=== PATIENT | female | born 1975 | race African-American/Black ===

== ENCOUNTER 2017-10-29 16:14 | Outpatient (CLI) | payer OTHER | END 2017-10-29 16:15 | disposition home or self-care (01) | LOC: CTENTCT 16:14 | PROVIDERS: ATTEND Specialist | DX: J32.9 Chronic sinusitis, unspecified (principal) | CPT/HCPCS: 70486 ==

== ENCOUNTER 2018-02-15 18:46 | Inpatient (IN) | payer OTHER ==
[~2018-02-15 18:46] MED LIST: ISOVUE-370 76%-LOCM 1 ML ONE
[2018-02-15 19:48] LABS: #Basophils 0.1 thou/uL (0.0-0.2); #Eosinphils 0.1 thou/uL (0.0-0.7); #Lymphocytes 3.2 thou/uL (1.20-3.40); #Monocytes 0.5 thou/uL (0.11-0.59); #Neutrophils 4.4 thou/uL (1.40-6.50); %Basophils 0.7 % (0.0-1.0); %Eosinophils 1.2 % (0.0-10.0); %Lymphocytes 39.3 % (21.0-51.0); %Monocytes 5.8 % (0.0-10.0); %Neutrophils 53.1 % (42.0-75.0); Hemoglobin 14.8 g/dL (12.0-16.0); Mean Corpuscular HGB CONC 32.4 g/dL (32.0-36.0); Mean Corpuscular Hemoglobin 28.5 pg (27.0-31.0); Mean Corpuscular Volume 88.1 fl (81.0-99.0); Mean Platelet Volume 8.9 fL (7.4-10.4); Platelet Count 248 thou/uL (130-400); RBC Distribution Width 12.5 % (11.5-14.5); Red Blood Cell (RBC) Count 5.18 mill/uL (4.20-5.40); White Blood Cell (WBC) Count 8.2 thou/uL (4.8-10.8)
--- NOTE | 2018-02-15 20:06 | CT ---
CT HEAD NONCONTRAST: Indication: Altered mental status. FINDINGS: There is no evidence of intracranial hemorrhage, mass effect, midline shift or ventriculomegaly. Para nasal sinuses are clear, where visualized. IMPRESSION: No acute intracranial abnormality. POS: [facility]
[2018-02-15 20:11] LABS: ALT (SGPT) 18 U/L (8-55); AST (SGOT) 19 U/L (5-34); Alkaline Phosphatase 63 U/L (40-150); Anion Gap 14 mmol/L (10-20); BUN (Urea Nitrogen) 13 mg/dL (7.0-18.7); Bilirubin, Total 0.4 mg/dL (0.2-1.2); Calc. Creatinine Clearance 0 mL/min (70-130); Calcium 9.1 mg/dL (7.8-10.44); Carbon Dioxide 24 mmol/L (22-29); Chloride 107 mmol/L (98-107); Estimated GFR-MDRD 82; Globulin 3.2 g/dL (2.4-3.5); Glucose 156 mg/dL (70-105); Potassium 3.7 mmol/L (3.5-5.1); Protein, Total 7.2 g/dL (6.0-8.3); Sodium 141 mmol/L (136-145)
[2018-02-15 20:15] LABS: CKMB 1.4 ng/mL (0-6.6); Troponin I Less than 0.010 ng/mL (< 0.028)
[2018-02-15] MEDS ORDERED: Ondansetron ODT 4 MG TAB ONE (20:30)
--- NOTE | 2018-02-15 20:32 | RAD ---
FRONTAL VIEW CHEST: Comparison: 11-22-11 Clinical history: Emergency exam. Difficulty breathing, chest pain. FINDINGS: There is enlarged of the cardiac silhouette. There are patchy bilateral alveolar opacities. No obviou s effusion or discrete pneumothorax within limitation of semi upright technique. Vascular prominence is seen at each hilar region. IMPRESSION: Findings which indicate fluid overload. Recommend continued imaging follow up. POS: [facility]
[2018-02-15 21:00] LABS: Bilirubin Negative (Negative); Blood, Urine Negative (Negative); Clarity CLEAR (Clear); Glucose, Urine (Dipstick) >=1000 mg/dL (Negative); Leukocyte Negative (Negative); Nitrite Negative (Negative); Protein, Urine (Dipstick) Negative (Neg-Trace); Specific Gravity, Urine 1.029 (1.002-1.036); Urobilinogen 0.2 mg/dL (0.2-1.0)
--- NOTE | 2018-02-15 22:33 | CT ---
CTA CHEST WITH 3D VOLUME RENDERING: Clinical history: Shortness of breath. Syncope. FINDINGS: There is no large central filling defect of the pulmonary arteries. The thoracic aorta is non-aneurys mal. There is diffuse alveolar consolidation throughout each lung. No pneumothorax or obvious effusio n. There are scattered borderline sized thoracic lymph nodes, nonspecific. No acute process of the im aged upper abdomen evident. Osseous structures are intact. IMPRESSION: 1. No large, central filling defects. 2. Diffuse alveolar consolidation bilaterally, favoring edema. The possibility of diffuse bilateral a typical pneumonia or other inflammatory process is not excluded and should be correlated with clinica l assessment. Recommend radiographic follow up to confirm resolution. POS: [facility]
[2018-02-15] MEDS ORDERED: cefTRIAXone\\ROCEPHIN 2 GM VIAL ONE (23:08)
[2018-02-15] MEDS ORDERED: Azithromycin 500 MG VIAL ONE (23:08)
[2018-02-15 23:20] LABS: Lactic Acid 2.3 mmol/L (0.5-2.2)
[2018-02-15 23:31] LABS: Troponin I Less than 0.010 ng/mL (< 0.028)
[2018-02-16] MEDS ORDERED: Acetaminophen 325 MG TAB PO PRN ×2 (00:09→02:09)
[2018-02-16] MEDS ORDERED: Ondansetron ODT 4 MG TAB SL PRN (00:09)
[2018-02-16] MEDS ORDERED: Ondansetron HCl/PF 4 MG/2 ML Vial IVP PRN ×2 (00:09→02:09)
[2018-02-16] MEDS ORDERED: cefTRIAXone\\ROCEPHIN 2 GM in Sodium Chloride 0.9% 100 ML IVPB SCH (00:15)
[2018-02-16 00:59] VITALS: BMI 47.2
[2018-02-16] MEDS ORDERED: Guaifenesin DM 100-10/5 ML UDCUP PO PRN (02:09)
[2018-02-16] MEDS ORDERED: Dextrose 50% Abboject 50 ML SYRINGE SLOW IVP PRN (02:09)
[2018-02-16] MEDS ORDERED: HYDROcodone/Acetaminophen 5/325 mg Tablet PO PRN (02:09)
[2018-02-16] MEDS ORDERED: Ondansetron ODT 4 MG TAB PO PRN ×2 (02:09)
[2018-02-16] MEDS ORDERED: Mag-Al 1200 mg/1200 mg/30 ML UDCUP PO PRN (02:09)
[2018-02-16] MEDS ORDERED: Milk Of Magnesia 30 ML UDCUP PO PRN (02:09)
[2018-02-16] MEDS ORDERED: Dextrose 5% in Water 1,000 ML IV PRN (02:09)
[2018-02-16 02:22] LABS: Troponin I Less than 0.010 ng/mL (< 0.028)
[2018-02-16] MEDS ORDERED: Furosemide 40 MG/4 ML VIAL SLOW IVP SCH (02:30)
--- NOTE | 2018-02-16 02:54 | HP ---
PRIMARY CARE PHYSICIAN: Dr. Karis Garcia. CHIEF COMPLAINT: "I have passed out." HISTORY OF PRESENT ILLNESS: Ms. Coelho is a pleasant 42-year-old female who has a history of diabet es mellitus type 2. She says that she was feeling fine all day. She had just gotten home from going out and had sat down on the couch when she says that her vision got blurry and the room started to s pin. She says that she was trying to get up and then she felt like she was going to throw up. When she attempted to stand up and then says she passed out. She says the next thing she knew she was in the emergency room. She says prior to that she did not have any problems and she states this on lorenzo ral occasions. She did say that she has noticed some pain on the right side of her face and behind h er eye. She did admit to having some shortness of breath at night in the last week or so and having to sleep on 2 pillows at night. Otherwise, no other complaints. She is coughing when I see her in t he room, but she says this just started since she has been in the hospital and the cough is nonproduc tive. She denies any fevers or chills and no other problems other than she continues to have some he adache and dizziness. REVIEW OF SYSTEMS: Constitutional: No fevers, chills, no night sweats, no weight loss. HEENT: She does admit to some headache primarily on the right side of her face behind her right eye as well as feeling dizzy and lightheaded. No sore throat, no rhinorrhea, no neck pain, no adenopathy. Pulmonar y: She has had some cough just a day. It is nonproductive. No hemoptysis. Cardiovascular: She de nies chest pain. She does admit to 2-pillow orthopnea as well as occasionally waking up through the night short-winded. No lower extremity edema and no palpitations. Gastrointestinal: She denies any abdominal pain, no nausea, no vomiting, no change in bowels. Genitourinary: No urinary frequency, hematuria, no hesitancy. Musculoskeletal: No muscle pains, weakness, or joint pains. Neurologic: No focal weakness, numbness, no seizures. Psychiatric: No symptoms of anxiety or depression. Skin and Integument: No skin changes. No rash. PAST MEDICAL HISTORY: Significant for diabetes mellitus. PAST SURGICAL HISTORY: She has had a hysterectomy. ALLERGIES: AMOXICILLIN. SOCIAL HISTORY: She is single, has one child. She is a nonsmoker, nondrinker. FAMILY HISTORY: Her mother has lupus as well as congestive heart failure. MEDICATIONS: Include metformin 2000 mg at bedtime, Lipitor 20 mg at bedtime, biotin 5000 units daily . PHYSICAL EXAMINATION: GENERAL: She is alert and oriented. She appears to be in no acute distress. VITAL SIGNS: Blood pressure was 110/58, heart rate 97, respiratory rate of 20, O2 saturation was 93% on 4 liters, temperature was 97.1. HEENT: Pupils are equal, round, and reactive. Extraocular muscles are intact. Her sclerae are anic teric. Throat: No erythema, no exudates. NECK: No adenopathy, no bruits. LUNGS: She has wheezing throughout all of her lung cline as well as rales throughout. CARDIOVASCULAR: She has a normal S1, S2. Heart rates are mildly tachycardic. There were no murmurs , clicks, or rubs. ABDOMEN: Obese, it is soft. She did have some mild diffuse tenderness. No rebound or guarding. EXTREMITIES: She has got trace lower extremity edema. NEUROLOGICAL: The exam is nonfocal. LABORATORY AND DIAGNOSTIC DATA: Her chest x-ray she has got cardiomegaly as well as bilateral increa sing pulmonary vascular markings. Her EKG was sinus. She had some nonspecific ST wave changes. Paola riuretic peptide was 184. White blood cell count 8.2, hemoglobin 14.8, hematocrit is 45.6, platelet count is 248,000. Sodium 141, potassium 3.7, chloride is 107, CO2 is 24, BUN of 13, creatinine 0.91, glucose is 156. Lactic acid was 2.4. Urinalysis was negative. She had a CT angiogram of the chest , it was negative for pulmonary embolism. There was some diffuse alveolar consolidation bilaterally favoring edema; however, diffuse bilateral atypical pneumonia could not be excluded. ASSESSMENT AND PLAN: 1. This is a pleasant 42-year-old female who presents to the hospital after having a syncopal episod e, does not appear to have been any antecedent chest pain or palpitations and she has x-ray findings consistent with either pneumonia or edema. She will be admitted to the telemetry floor and we will t reat her for above. She has been placed already on IV antibiotics including azithromycin for atypica l organisms and DuoNeb as needed. We will also get an echocardiogram to assess her ejection fraction and give her a trial of Lasix as well. Monitor her on telemetry for arrhythmias. She will be place d on deep venous thrombosis prophylaxis. 2. Diabetes mellitus. She has had a recent CT angiogram. Therefore, we will hold off on metformin for now and treat her with a sliding scale insulin and long-acting insulin if needed. Metformin can be started in the next couple of days or at discharge. Further recommendations will be dependent on the echo as well as her response to antibiotics.
[2018-02-16 05:22] LABS: #Lymphocytes 1.1 thou/uL (1.20-3.40); #Monocytes 0.3 thou/uL (0.11-0.59); #Neutrophils 14.1 thou/uL (1.40-6.50); %Basophils 0.1 % (0.0-1.0); %Eosinophils 0.2 % (0.0-10.0); %Lymphocytes 7.1 % (21.0-51.0); %Monocytes 2.2 % (0.0-10.0); %Neutrophils 90.5 % (42.0-75.0); Hemoglobin 14.8 g/dL (12.0-16.0); Mean Corpuscular HGB CONC 31.6 g/dL (32.0-36.0); Mean Corpuscular Hemoglobin 27.9 pg (27.0-31.0); Mean Corpuscular Volume 88.3 fl (81.0-99.0); Platelet Count 255 thou/uL (130-400); RBC Distribution Width 12.6 % (11.5-14.5); Red Blood Cell (RBC) Count 5.31 mill/uL (4.20-5.40); White Blood Cell (WBC) Count 15.6 thou/uL (4.8-10.8)
[2018-02-16 05:52] LABS: Anion Gap 14 mmol/L (10-20); BUN (Urea Nitrogen) 12 mg/dL (7.0-18.7); Calc. Creatinine Clearance 167 mL/min (70-130); Calcium 9.2 mg/dL (7.8-10.44); Carbon Dioxide 21 mmol/L (22-29); Cardiac Risk 3.7 (Less than 4.5); Chloride 105 mmol/L (98-107); Cholesterol 175 mg/dl (< 200 Desired); Estimated GFR-MDRD 89; Glucose 229 mg/dL (70-105); HDL Cholesterol 47 mg/dL (>60 Neg Risk); LDL Cholesterol, Calculated 117 mg/dL; Potassium 4.3 mmol/L (3.5-5.1); Sodium 136 mmol/L (136-145); Triglycerides 53 mg/dL (Less than 150)
[2018-02-16] MEDS: Docusate 100 MG CAP PO SCH ×2 (09:12→21:17)
[2018-02-16] MEDS: Furosemide 40 MG/4 ML VIAL SLOW IVP SCH (09:12)
[2018-02-16] MEDS: Enoxaparin Sodium 40 MG/0.4 ML SYRINGE SC SCH (09:12)
[2018-02-16 09:48] LABS: Hemoglobin A1c 9.1 % (4.0-6.0)
[2018-02-16] MEDS: Azithromycin 500 MG in Sodium Chloride 0.9% 250 ML 250 ML IVPB SCH (23:13)
[2018-02-17 07:49] LABS: #Lymphocytes 0.9 thou/uL (1.20-3.40); #Neutrophils 12.4 thou/uL (1.40-6.50); %Eosinophils 0.1 % (0.0-10.0); %Lymphocytes 6.5 % (21.0-51.0); %Monocytes 7.2 % (0.0-10.0); %Neutrophils 86.2 % (42.0-75.0); Mean Corpuscular HGB CONC 31.7 g/dL (32.0-36.0); Mean Corpuscular Volume 88.3 fl (81.0-99.0); Mean Platelet Volume 8.8 fL (7.4-10.4); Platelet Count 216 thou/uL (130-400); RBC Distribution Width 12.7 % (11.5-14.5); Red Blood Cell (RBC) Count 5.01 mill/uL (4.20-5.40); White Blood Cell (WBC) Count 14.4 thou/uL (4.8-10.8)
[2018-02-17 08:13] LABS: ALT (SGPT) 14 U/L (8-55); AST (SGOT) 17 U/L (5-34); Albumin 3.7 g/dL (3.5-5.0); Alkaline Phosphatase 53 U/L (40-150); Anion Gap 12 mmol/L (10-20); BUN (Urea Nitrogen) 16 mg/dL (7.0-18.7); Bilirubin, Total 0.8 mg/dL (0.2-1.2); Calc. Creatinine Clearance 157 mL/min (70-130); Calcium 8.9 mg/dL (7.8-10.44); Carbon Dioxide 23 mmol/L (22-29); Chloride 107 mmol/L (98-107); Estimated GFR-MDRD 83; Globulin 3.1 g/dL (2.4-3.5); Glucose 272 mg/dL (70-105); Protein, Total 6.8 g/dL (6.0-8.3); Sodium 138 mmol/L (136-145)
[2018-02-17 08:16] LABS: Troponin I 0.025 ng/mL (< 0.028)
[2018-02-17 08:21] LABS: Medtox Reader # READER 1
[2018-02-17 08:22] LABS: Amphetamine Not Detected (NotDetected); Barbiturates Screen Not Detected (NotDetected); Benzodiazepine Screen Not Detected (NotDetected); Cocaine Metabolite Screen Not Detected (NotDetected); Medtox Control Line Valid? VALID (VALID); Methadone Not Detected (NotDetected); Methamphetamine Not Detected (NotDetected); Opiate Screen Not Detected (NotDetected); Oxycodone Screen Not Detected (NotDetected); Phencyclidine (PCP) Not Detected (NotDetected); THC/Cannabinoid Screen Not Detected (NotDetected); Tricyclic Screen Not Detected (NotDetected)
[2018-02-17 08:28] LABS: CO2 Tension 35.8 mmHg (35.0-45.0); O2 Tension (PaO2) 60.2 mmHg (80.0-100.0); pH, Arterial 7.43 (7.35-7.45)
[2018-02-17 08:29] LABS: INR-International Normal Ratio 1.3; PTT 23.2 SEC (22.9-36.1); Prothrombin Time 16.5 SEC (12.0-14.7)
[2018-02-17 08:29] LABS: Actual Bicarbonate (HCO3a) 23.4 mEq/L (22-26); Base Excess (BEa) -0.4 mEq/L (0 (+/-) 2.5); Calcium, Ionized 1.2 mmol/L (1.12-1.30); Hematocrit-ABG 44.1 % (36.0-47.0); Hemoglobin (Hb) 13.6 g/dL (12.0-16.0); Puncture Site RRA
[2018-02-17] MEDS ORDERED: Bacitracin Zinc Ointment 30 gm TUBE ONE (08:54)
[2018-02-17] MEDS ORDERED: Bupivacaine HCl 0.5%/Epinephrine 1:200,000/PF 30 ml Vial ONE (08:56)
[2018-02-17] MEDS ORDERED: Thrombin 5000 UNITS/5 ML VIAL ONE (08:57)
[2018-02-17] MEDS ORDERED: Rocuronium Bromide 50 MG/5 ML VIAL ONE (08:58)
[2018-02-17] MEDS ORDERED: Lidocaine 0.5%/Epinephrine 1:200,000 50 ml Vial ONE (08:59)
[2018-02-17] MEDS ORDERED: Cefepime 2 GM in Sodium Chloride 0.9% 100 ML IVPB SCH (09:00)
[2018-02-17] MEDS ORDERED: CEFAZOLIN 1 GM VIAL ONE (09:03)
--- NOTE | 2018-02-17 09:06 | PDOC.PN ---
- Subjective Encounter Start Date: 02/17/18 Encounter Start Time: 09:03 Patient seen and examined - Objective Resuscitation Status: Resuscitation Status FULL:Full Resuscitation Vital Signs & Weight: Vital Signs (12 hours) Temp Pulse Resp BP Pulse Ox 02/17/18 07:20 94 L 02/17/18 04:00 99.2 F 118 H 20 115/55 L 95 02/17/18 00:23 97 02/17/18 00:00 99.9 F H 108 H 20 106/52 L 97 Weight Weight 267 lb I&O: 02/16/18 02/17/18 02/18/18 06:59 06:59 06:59 Intake Total 250 240 Output Total 700 Balance 250 -460 Result Diagrams: 02/17/18 07:30 02/17/18 07:30 Additional Labs: Accuchecks 02/17/18 02/16/18 02/16/18 05:40 20:29 16:31 POC Glucose 272 H 228 H 268 H 02/16/18 10:52 POC Glucose 222 H Phys Exam - Physical Examination Constitutional: NAD obese HEENT: PERRLA intubated Neck: no nodes, no JVD, supple coarse breath sounds no respiratory distress Cardiovascular: no significant murmur, no rub tachycardic Gastrointestinal: soft, non-tender, no distention, positive bowel sounds Musculoskeletal: pulses present, edema present (trace) grimices to sternal rub only Deviation from normal: intubated Skin: no rash, normal turgor Dx/Plan (1) Cerebellar infarction Code(s): I63.9 - CEREBRAL INFARCTION, UNSPECIFIED Status: Acute (2) Hydrocephalus Code(s): G91.9 - HYDROCEPHALUS, UNSPECIFIED Status: Acute (3) Diabetes mellitus Code(s): E11.9 - TYPE 2 DIABETES MELLITUS WITHOUT COMPLICATIONS Status: Acute (4) Respiratory failure Code(s): J96.90 - RESPIRATORY FAILURE, UNSP, UNSP W HYPOXIA OR HYPERCAPNIA Status: Acute (5) Aspiration pneumonia Code(s): J69.0 - PNEUMONITIS DUE TO INHALATION OF FOOD AND VOMIT Status: Acute - Plan * The patient was seen yesterday by me around 8:30-9am, note not written as she had been admitted past midnight, yesterday morning patient was speaking 2-3 sentences and AAO x 3, stated she was very tired as she had not gotten any rest. At 2:45-3pm nurse called saying patient was still sleepy but coherent and oriented. Vital signs were stable throughout, nurse was requested to monitor vital signs and call if any changes. * Cardiology also consulted yesterday due to low EF on Echo, 25-30% * This morning I received a call at 7:30am stating the patient had a code green called due to sleepiness and minimal responsiveness, stat EKG, troponins, urine drug screen, jones placement and ABG were done * Stat CT scan of brain showed a new infarction on right cerebellar region, CTA showed mass effect on the 4th ventricle. * Neurosurgery was called immedieately as well as pulmonary critical care and patient was moved to ICU for intubation. After review of images it was decided by neuro sx to take patient to the OR for surgical intervention * UDS was negative, ABG showed borderline low PO2 at 60, fever noted, patient has been on azithromycin * Patient's mother, Brittni Silva was notified and given an update on the situation, * Patient at this point in time is to remain a full code, will await patient to return from the OR * Neuro sx, cardiology and pulmonary critical care team following, highly appreciate input and help * plan d/w patient's mother at length, she understands and agrees with above plan
--- NOTE | 2018-02-17 09:09 | PRG ---
DATE OF SERVICE: 02/17/2018 Ms. Coelho is a 42-year-old female admitted 2 days ago for signs and symptoms consistent with pneumo andrez. At some point over the last 24 hours she became increasingly less responsive to the point where this morning she has been rapid sequence intubated. Prior to that time, she underwent a CT examinat ion of the head which shows obstructive hydrocephalus due to what appears to be a pica region infarct on the right side with a significant cerebellar edema with compromise of the fourth ventricle and br ainstem compression. My plan is to perform an emergent posterior fossa hemicraniectomy. She will also likely need a ventr iculostomy. I have made an attempt to contact her mother and have been unsuccessful thus far in reaching her. I will continue to try, but will move forward with this emergent matter to the operating room expeditio usly.
[2018-02-17] MEDS: Enoxaparin Sodium 40 MG/0.4 ML SYRINGE SC SCH (09:19)
[2018-02-17] MEDS: Docusate 100 MG CAP PO SCH ×2 (09:19→19:58)
[2018-02-17] MEDS: Furosemide 40 MG/4 ML VIAL SLOW IVP SCH (09:20)
[2018-02-17] MEDS ORDERED: Insulin Regular 300 UNITS/3 ML VIAL ONE (09:57)
--- NOTE | 2018-02-17 10:25 | CT ---
CT HEAD WITHOUT CONTRAST: Technique: Multiple axial tomograms were obtained through the head without IV enhancement. History: Mental status change. Stroke alert. Comparison: 02-15-18 FINDINGS: There has been significant changed in the brain when compared to the prior study. There is now eviden ce of a large right cerebellar infarct with cytotoxic edema producing mass effect on the fourth ventr icle with slight midline shift. There may be early infarct involving the left anterior cerebellum. The compression of the fourth ventricle results in mild hydrocephalus which is also a new finding. Th ere is increased intracranial pressure noted with effacement of the basilar cisterns and diffuse sulc al effacement. No midline shift of the septum pellucidum. No acute hemorrhage. IMPRESSION: 1. Evidence of a large right cerebellar infarct with cytotoxic edema and mass effect on the fourth ve ntricle with secondary hydrocephalus. 2. Probable early anterior left cerebellar infarct. 3. Evidence of increased intracranial pressure with effacement of the basilar cisterns and diffuse guerrero lcal effacement. 4. Findings relayed to patient's attending physician at the time of dictation. POS: [facility]
[2018-02-17] MEDS ORDERED: Iopamidol 370 76% 100 ML VIAL ONE (10:59)
--- NOTE | 2018-02-17 11:06 | RAD ---
PORTABLE CHEST ONE VIEW: 02/17/2018 8:56 a.m. HISTORY: Respiratory failure. Pneumonia. COMPARISON: 02/15/2018 FINDINGS: There has been interval placement of an endotracheal tube with the tip about 11 mm above the level of the erma. A nasogastric tube has been placed and can be traced into the stomach with the tip excl uded from the film. The heart size is enlarged. Patchy consolidation is seen bilaterally. No pneum othorax or large effusions are identified. POS: [facility]
--- NOTE | 2018-02-17 11:22 | CT ---
CT ANGIOGRAM OF THE HEAD CT ANGIOGRAM OF THE NECK: Date: 02/17/18 COMPARISON: None. HISTORY: Stroke alert. Unresponsive patient. TECHNIQUE: Serial axial CT imaging at 1.25 mm intervals from the vertex through the lung apices with IV contrast using a CT angiogram protocol. Coronal and sagittal 3D reformatted imaging obtained. FINDINGS: There is extensive air space disease within the imaged lung apices with areas of consolidation noted in left upper lobe, right upper lobe, and right middle lobe. Imaged portions of the heart demonstrate prominence of the cardiac silhouette suggesting possible car diomegaly. Patient body habitus leads to streak artifact, limiting assessment at the base of the neck and in the region of the superior mediastinum. The aortic arch appears grossly unremarkable. The innominate art monse, left common carotid artery, left subclavian artery, right common carotid artery, and right subcl bailey artery origins appear patent. Detailed assessment at the distal aspect of the innominate artery is limited secondary to artifact. Secondary to body habitus and streak artifact, the proximal aspect/origin of bilateral vertebral junior crystal is limited. Patency cannot be confirmed in either vertebral artery at the origin. Neither verteb ral artery is well seen from the expected location of the origin to axial level of the C5-6 intervert ebral disc and areas of vertebral artery stenosis and/or occlusion proximally cannot be excluded. The bilateral vertebral arteries are seen within the foramen transversarium at the axial level of the C4 -5 disc interspace and distal to this, demonstrating extension intracranially with patency and format ion of the basilar artery, which is patent as well. There is a patent posterior communicating artery on the right. Bilateral posterocerebral arteries appear patent. Artifact and body habitus limit detai led assessment of the proximal aspect of the right common carotid artery. Right common carotid artery is medialized at the level of the hyoid bone and motion, probably on the basis of swallowing, limits assessment of the distal right common carotid artery just proximal to the bifurcation. Right interna l carotid artery appears tortuous proximally, but appears patent. Streak artifact limits detailed assessment of the proximal left common carotid artery. Distal left co mmon carotid artery is markedly limited in assessment at the axial level of the supraglottic airway o n the basis of motion. Left CCA bifurcation appears unremarkable. There is attenuation of both internal carotid arteries in the petrous segments which may be on the ba sis of narrowing or artifact. Bilateral anterior cerebral arteries appear patent. The M1 segment and MCA bifurcation appears unrema rkable bilaterally. Distal MCA branches are unremarkable. There is hypodensity within the right cerebellar hemisphere posteriorly and inferiorly, suggesting a right-sided PICA infarction. There is prominent associated mass effect with deviation of the fourth v entricle to the left and obliteration of the inferior aspect of the fourth ventricle with associated dilation of the lateral ventricles and third ventricle, evidence of obstructive hydrocephalus. This o bstructive hydrocephalus has developed since the 02/15/18 examination. Emergent neurosurgical consult ation is thus indicated. The imaged osseous structures demonstrate no worrisome lytic or blastic lesions. The retroantral fat and parapharyngeal fat appears clear bilaterally. The parotid and submandibular g lands appear unremarkable. Motion artifact limits detailed assessment at the level of the supraglotti c airway and glottis. The degree of mass effect within the posterior fossa causes anterior displacement and a degree of com pression of the brainstem. IMPRESSION: 1. Limited study secondary to motion and body habitus. Patency is difficult to confirm involving richie ateral proximal vertebral arteries as above. In addition, distal CCA is limited in assessment seconda ry to motion. Evidence of right PICA infarction with severe mass effect and obliteration of the fourt h ventricle inferiorly with obstructive hydrocephalus. Brain MRI could better assess the extent of ac council infarction. 2. Extensive multifocal air space disease suggesting infectious pneumonitis or aspiration. Results discussed with the neurosurgical physician's wet process assistant head miller, Aayush Torre, at 0840 hours on 01/21 06/09. Results discussed with Dr. Timothy Miramontes at 0845 hours on 02/17/18. CODE CR. POS: [facility]
--- NOTE | 2018-02-17 11:58 | OP ---
DATE OF PROCEDURE: 02/17/2018 SURGEON: Kurt Miramontes M.D. SENIOR DEVELOPER: None. INDICATION: Prevent neurologic decline. 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 PROCEDURES PERFORMED: Placement of right frontal external ventricular drain, suboccipital craniotomy on the right, partial resection of a right cerebellar hemisphere. ANESTHESIA: General. TECHNIQUE: The patient was brought into the operating room, already intubated. She was under anesth esia. After placement of an arterial line and a central line, I placed a ventriculostomy in the righ t frontal region. This went uneventfully. I then applied a 3-point Connors laxmi and we flipped h er from a supine to a prone position, securing her on the table. A linear incision was then planned in the suboccipital region. After prepping and draping and after an appropriate pause, the incision was created. The soft tissues were swept away from midline. A self-retaining retractor was placed. [place] holes were then placed within the right occipital bone and a router bit was used to connect the se ata holes. Additional bone was then removed using rongeurs. A discolored and protuberant right cerebellar hemisphere was identified beneath the dura. A 15 blade knife was then used to perform a l arge cruciate incision within the dura. Brain was noted to immediately herniate from within the dura l defect. Much of this brain was resected away until the brain matter was more relaxed. I then obta ined hemostasis. The patient did receive mannitol prior to incision, which also helped with brain re laxation. The drainage of the ventriculostomy also assisted in that regard. After decompressing the right cerebellar hemisphere, the dura was left open. The wound was copiously irrigated. Hemostasis was maintained throughout. The wound was then closed in anatomic layers and a pressure dressing was applied. There were no known procedural complications. A head wrap was applied. The ventriculosto my was turned off for transport.
[2018-02-17 12:25] LABS: Actual Bicarbonate (HCO3a) 22.3 mEq/L (22-26); Base Excess (BEa) -3.9 mEq/L (0 (+/-) 2.5); CO2 Tension 44.9 mmHg (35.0-45.0); Hematocrit-ABG 42.4 % (36.0-47.0); Hemoglobin (Hb) 13.3 g/dL (12.0-16.0); pH, Arterial 7.31 (7.35-7.45)
[2018-02-17 12:26] LABS: ALV-art Gradient 581.875 (0-20); Calcium, Ionized 1.1 mmol/L (1.12-1.30); Puncture Site ALINE
--- NOTE | 2018-02-17 13:00 | CON ---
DATE OF CONSULTATION: 02/17/2018 Aayush Torre PA-C dictating for Kurt Miramontes M.D. In addition to Dr. Miramontes's note, this is a 30-minute initial patient consult in which greater than 50 % of the exam was spent counseling and coordinating patient's care. Remainder of the exam was spent in review of patient's medical record and formulation of treatment plan. CHIEF COMPLAINT: Altered mental status and neurologic decline. HISTORY OF PRESENT ILLNESS: Ms. Coelho is a 42-year-old female who was originally admitted to [facility] Emergency Room yesterday for complaints of dizziness, generalized weakness, and blurred vision. She was noted to have a significant pneumonia and was admitted for this. Over the course of 24 lisa rs, she became progressively more lethargic. The CT scan was obtained showing obstructive hydrocepha sera which perhaps is a high calf region infarct on the right resulting in significant cerebellar alex a. Code was run given respiratory distress and the patient was transferred from the stroke unit to [facility] ICU and intubated. PHYSICAL EXAMINATION: NEUROLOGIC: The patient currently was being intubated, so difficult to get a good neurologic exam. She was moving the bilateral upper extremities, attempting to localize to the intubation tube. She h ad no movement in the bilateral lower extremities. She was not formally following commands and has s noring respirations. IMPRESSION: Altered mental status and progressive neurologic decline with posterior inferior cerebel lar artery region infarct on the right with cerebellar edema compromise of the fourth ventricle and b rainstem compression. PLAN: I have discussed the patient's case with Dr. Miramontes at this time earlier today. The plan is to take her emergently to surgery. A right frontal EVD will be placed and they will proceed with emerg ent posterior fossa craniotomy. Family was attempted to be reached by Dr. Miramontes, but he was unsucces sful. Again, we will plan on this emergent surgery. Please note that the patient was seen and consult at roughly 8:30 a.m.; however, due to the severity and urgency of her condition, this is a late dictation.
[2018-02-17] MEDS: niCARdipine HCl 50 MG in Sodium Chloride 0.9% 250 ML 230 ML IVPB SCH ×2 (13:26→16:55)
[2018-02-17] MEDS ORDERED: PROPOFOL 200 MG/20 ML VIAL ONE (13:27)
[2018-02-17] MEDS ORDERED: PROVENTIL INHALER 6.7 G (200 INHALATIONS) ONE (13:27)
[2018-02-17] MEDS ORDERED: Esmolol 100 MG/10 ML VIAL ONE (13:27)
[2018-02-17] MEDS: Cefepime 2 GM in Sodium Chloride 0.9% 100 ML IVPB SCH (13:42)
--- NOTE | 2018-02-17 13:56 | RAD ---
FRONTAL VIEW CHEST: INDICATIONS: Ventilated patient. COMPARISON: Earlier same day. FINDINGS: The endotracheal tube has been retracted and is located at the level of the thoracic inlet. An enter ic catheter traverses the left upper abdomen. There is a left subclavian venous catheter, the distal tip of which is difficult to discern due to overlying extrinsic artifact. There is diffuse alveolar consolidation of the right lung, which has progressed. Perihilar distribution of alveolar opacity o f left lung present. The cardiac silhouette is enlarged, which obscures the left lung base from view . IMPRESSION: 1. Retracted endotracheal tube, now terminating at the thoracic inlet level. 2. Progressive multifocal alveolar consolidation of the right lung. Correlate clinically. There is also patchy left perihilar opacity and an enlarged cardiac silhouette, which obscures the left lung base. 3. Placement of left subclavian venous catheter, with tip difficult to visualize due to numerous ext rinsic artifacts. Recommend continued imaging followup. POS: [facility]
--- NOTE | 2018-02-17 15:00 | CON ---
DATE OF CONSULTATION: 02/17/2018 REASON FOR CONSULTATION: Cardiomyopathy. REFERRING PROVIDER: Twin Moran M.D. HISTORY OF PRESENT ILLNESS: Ms. Coelho is an unfortunate 42-year-old woman who recently presented w ith syncope. The history is obtained from the chart. She is currently intubated and sedated. From chart, there is no previous history of underlying coronary disease. She had a recent syncopal e pisode with nausea and dizziness. She also states she had pain in the right side of her face. She was subsequently admitted. A code green was called on 02/17/2018. A CT scan performed suggested a large right cerebral infarct with edema and mass effect. She was taken urgently by Dr. Timothy Miramontes for right frontal lobe external ventricular drain, suboccipital craniotomy and partial resection rig ht cerebral hemisphere. She was seen and evaluated shortly after she returned from surgery. PAST MEDICAL HISTORY: Diabetes mellitus, hypertension, and hyperlipidemia. HOME MEDICATIONS: Include biotin, Jardiance, Lipitor, and Glucophage. ALLERGIES: AMOXICILLIN. REVIEW OF SYSTEMS: Unobtainable. PHYSICAL EXAMINATION: VITAL SIGNS: Blood pressure 161/100, pulse 117, respirations 20. GENERAL: The patient is currently intubated and sedated. NEUROLOGIC: The patient is alert and oriented times 3 with no focal neurologic deficits. HEENT: Sclerae without icterus. Mouth has moist mucous membranes with normal pallor. NECK: No JVD. Carotid upstroke brisk. No bruits bilaterally. LUNGS: Clear to auscultation with unlabored respirations. BACK: No scoliosis or kyphosis. CARDIAC: Regular rate and rhythm with normal S1 and S2. No S3 or S4 noted. No significant rubs, murmurs, thrills, or gallops noted throughout the precordium. PMI is not displaced. There is no parasternal heave. ABDOMEN: Soft, nontender, nondistended. No peritoneal signs present. No hepatosplenomegaly. No abnormal striae. EXTREMITIES: 2+ femoral and 2+ dorsalis pedis pulses. No cyanosis, clubbing, or edema. SKIN: No gross abnormalities. PERTINENT LABORATORY DATA: Hemoglobin 14, creatinine 0.9. Echo Doppler LVEF 25%-30%, although difficult to assess LVEF per Dr. Wharton's note due to suboptimal images. IMPRESSION: 1. Cardiomyopathy. 2. Recent obstructive hydrocephalus, status post partial craniotomy and external ventricular drain. RECOMMENDATIONS: From a cardiac standpoint, it is unknown the timing of Mr. Coelho's cardiomyopathy . This may have been hypertensive induced. This may have been due to underlying coronary disease. More certainly there is a possibility given a history of diabetes mellitus and hypertension. This ma y also be secondary to a recent change in her neurologic decline. At this point, close observation a nd conservative therapy will be recommended. Prognosis is certainly guarded. I will continue to fol low with you.
[2018-02-17] MEDS ORDERED: Ventilator Sedation Protocol 1 EACH FS SCH (15:15)
[2018-02-17] MEDS ORDERED: Morphine 4 MG/ML VIAL SLOW IVP PRN (15:39)
[2018-02-17] MEDS ORDERED: Fentanyl BOLUS 250 ML IVPB PRN (15:39)
[2018-02-17] MEDS ORDERED: fentaNYL Citrate/PF 2,000 MCG in Sodium Chloride 0.9% 60 ML IV SCH (15:39)
[2018-02-17] MEDS ORDERED: Propofol BOLUS 1,000 MG/100 ML VIAL IV PRN (15:39)
[2018-02-17] MEDS ORDERED: Propofol 1,000 MG/100 ML VIAL IV PRN (15:39)
[2018-02-17] MEDS ORDERED: DISCONTINUE PREVIOUS NARCOTIC PAIN MEDICATIONS AND BENZODIAZEPINES FS SCH (15:39)
[2018-02-17] MEDS: HumaLOG 300 UNITS/3 ML VIAL SC PRN ×2 (16:37→21:13)
[2018-02-17] MEDS: Azithromycin 500 MG in Sodium Chloride 0.9% 250 ML 250 ML IVPB SCH (23:07)
--- NOTE | 2018-02-17 23:53 | EKG ---
Test Reason : CODE GREEN Blood Pressure : / mmHG Vent. Rate : 108 BPM Atrial Rate : 108 BPM P-R Int : 140 ms QRS Dur : 100 ms QT Int : 358 ms P-R-T Axes : 075 -07 060 degrees QTc Int : 479 ms Sinus tachycardia Nonspecific T wave abnormality Abnormal ECG When compared with ECG of 15-FEB-2018 18:58, (Unconfirmed) Nonspecific T wave abnormality no longer evident in Inferior leads Confirmed by Raul BATISTA ([id number]) on 02/17/2018 11:52:49 PM Referred By: Confirmed By:Raul BATISTA
[2018-02-18] MEDS: Cefepime 2 GM in Sodium Chloride 0.9% 100 ML IVPB SCH ×2 (00:48→12:13)
[2018-02-18] MEDS: Labetalol HCl 100 MG/20 ML VIAL SLOW IVP PRN (02:03)
[2018-02-18] MEDS: niCARdipine HCl 50 MG in Sodium Chloride 0.9% 250 ML 230 ML IVPB SCH ×4 (03:15→19:42)
[2018-02-18 06:20] LABS: #Lymphocytes 0.9 thou/uL (1.20-3.40); %Basophils 0.1 % (0.0-1.0); %Lymphocytes 7.8 % (21.0-51.0); %Monocytes 8.7 % (0.0-10.0); %Neutrophils 83.3 % (42.0-75.0); Hemoglobin 12.2 g/dL (12.0-16.0); Mean Corpuscular HGB CONC 32.3 g/dL (32.0-36.0); Mean Corpuscular Hemoglobin 28.7 pg (27.0-31.0); Mean Corpuscular Volume 88.6 fl (81.0-99.0); Mean Platelet Volume 9.1 fL (7.4-10.4); Platelet Count 196 thou/uL (130-400); RBC Distribution Width 12.7 % (11.5-14.5); Red Blood Cell (RBC) Count 4.27 mill/uL (4.20-5.40); White Blood Cell (WBC) Count 10.8 thou/uL (4.8-10.8)
[2018-02-18 06:30] LABS: Anion Gap 9 mmol/L (10-20); BUN (Urea Nitrogen) 15 mg/dL (7.0-18.7); Calc. Creatinine Clearance 171 mL/min (70-130); Calcium 8.8 mg/dL (7.8-10.44); Carbon Dioxide 23 mmol/L (22-29); Chloride 116 mmol/L (98-107); Estimated GFR-MDRD Greater than 90; Glucose 304 mg/dL (70-105); Potassium 3.7 mmol/L (3.5-5.1); Sodium 144 mmol/L (136-145)
[2018-02-18] MEDS: HumaLOG 300 UNITS/3 ML VIAL SC PRN ×4 (06:44→21:26)
[2018-02-18 07:42] LABS: Base Excess (BEa) -1.8 mEq/L (0 (+/-) 2.5); CO2 Tension 29.6 mmHg (35.0-45.0); Hemoglobin (Hb) 11.5 g/dL (12.0-16.0)
[2018-02-18 07:43] LABS: Analyzer IN Cardio ER; Calcium, Ionized 1.2 mmol/L (1.12-1.30); Puncture Site LINE
[2018-02-18 07:45] LABS: O2 Tension (PaO2) 47.3 mmHg (80.0-100.0); pH, Arterial 7.47 (7.35-7.45)
--- NOTE | 2018-02-18 09:28 | CON ---
DATE OF CONSULTATION: 02/17/2018 HISTORY OF PRESENT ILLNESS: This is a 42-year-old morbidly obese female who was admitted on with weight of 118 kilograms. Sats are 70% on room air, blood pressure 130/96, respiratory rate 18, temperature 97. She presented with weakness, mental status change and vomiting. She recalled several days. Room was spinning around. According to her primary care physician, yesterday, she was doing reasonably well, but over the course of her night, she became more confused and more agitated. CT head showed posterior circulation hemorrhage with hydrocephalus. She was brought to the ER with agonal respirations and obtunded. A 7.5 endotracheal tube was placed over the bronchoscope and there was large thick tenacious purulent secretion in the back of the throat, marked edema in the back of the throat from her obesity. The endotracheal tube was passed in above the erma and was unable to overpass the endotracheal tube in the trach because of marked obesity. Tube was removed. The patient was bagged. A second trial of passing ET tube was done over bronchoscope was successful. Tube was secured. She was bagged. Sats were in the 90s. Bronchoscope was repassed again to inspect both airways. In right lung, initially right upper and right middle lobe, no endobronchial disease was seen. In the left lung, left upper and left lower lobe, no endobronchial disease seen. Both lungs lavaged with normal saline at 50 mL. Washings sent for Gram stain and C&S and connected to warm cycle respirator. Neurosurgery was consulted who is going to apparently take her to surgery. PAST MEDICAL HISTORY: Pertinent for apparently diabetes. Asthma as a child. PAST SURGICAL HISTORY: and hysterectomy. SOCIAL HISTORY: Tobacco at this stage, unknown. Alcohol, unknown. MEDICATIONS: List of medicines includes Jardiance 10 mg a day, Lipitor 20, metformin 1000 once a day. ALLERGIES: PENICILLIN. REVIEW OF SYSTEMS: Unobtainable. PHYSICAL EXAMINATION: VITAL SIGNS: Post-intubation, sats are 98%, blood pressure 113/80, respirations 20, temperature 99. CHEST: Extensive rhonchi and crackles. CARDIAC: Sinus tachycardia. ABDOMEN: Massive. NEUROLOGIC: Sedated. HEENT: Pupils are equal. LABORATORY DATA: White count 14,000, hemoglobin and hematocrit is 14 and 44, platelet count of 216, pO2 of 60, pCO2 of 35, pH of 7.43 on a 4-liter nasal cannula. Electrolytes are normal. Glucose slightly elevated. IMAGING DATA: 1. Emergency CT of the brain as well as angiogram was done with contrast. 2. Chest x-ray showed bilateral pulmonary infiltrates. IMPRESSION: 1. Posterior circulation hemorrhage with hydrocephalus. 2. Respiratory failure. 3. Morbid obesity. 4. Diabetes. PLAN: Maxipime, Levaquin, and neb treatment was initiated. IV fluids. NG tube. We will follow in the ICU postop. Maintain sats at 90%. DVT prophylaxis with proton pump inhibitors. Prognosis remains guarded. This is a 45-minute critical time exclusive of intubation and the bronchoscopy. MTDD
[2018-02-18] MEDS: Docusate 100 MG CAP PO SCH ×2 (09:30→20:03)
[2018-02-18] MEDS: Losartan 25 MG TAB PO SCH (09:47)
[2018-02-18] MEDS: Furosemide 40 MG/4 ML VIAL SLOW IVP SCH (09:47)
[2018-02-18 10:27] LABS: Actual Bicarbonate (HCO3a) 23.1 mEq/L (22-26); Base Excess (BEa) -3.7 mEq/L (0 (+/-) 2.5); CO2 Tension 48.9 mmHg (35.0-45.0); Hematocrit-ABG 42.1 % (36.0-47.0); O2 Tension (PaO2) 61.5 mmHg (80.0-100.0); pH, Arterial 7.29 (7.35-7.45)
[2018-02-18 10:28] LABS: Actual Bicarbonate (HCO3a) 23.4 mEq/L (22-26); Base Excess (BEa) -3.8 mEq/L (0 (+/-) 2.5); CO2 Tension 51.5 mmHg (35.0-45.0); Hematocrit-ABG 41.2 % (36.0-47.0); Hemoglobin (Hb) 12.8 g/dL (12.0-16.0); O2 Tension (PaO2) 69.3 mmHg (80.0-100.0); pH, Arterial 7.28 (7.35-7.45)
[2018-02-18 10:28] LABS: Analyzer IN Cardio OR; Calcium, Ionized 1.1 mmol/L (1.12-1.30); Puncture Site ALINE
--- NOTE | 2018-02-18 10:28 | RAD ---
PORTABLE CHEST: History: Dyspnea. CCU follow up. Comparison: 02-17-18 FINDINGS/IMPRESSION: Bilateral alveolar infiltrates again noted, more extensive on the right. ET tube and NG tube remain i n place. The left lung infiltrates appear more prominent today. POS: [facility]
[2018-02-18 10:29] LABS: Analyzer IN Cardio OR; Calcium, Ionized 1.1 mmol/L (1.12-1.30); Puncture Site ALINE
--- NOTE | 2018-02-18 10:51 | PRG ---
DATE OF SERVICE: 02/18/2018 Ms. Coelho is now 1 day status post emergent suboccipital craniectomy with placement of ventriculost chelsi. She remains intubated this morning, but she does open her eyes to voice and she does follow com mands with all 4 extremities. The plan will be ongoing usage of the ventriculostomy for the next few days. I will obtain a head CT tomorrow morning to further evaluate the degree of decompression and swelling in the posterior fossa.
[2018-02-18] MEDS: Acetaminophen 325 MG TAB PO PRN ×2 (12:14→19:56)
--- NOTE | 2018-02-18 13:28 | PRG ---
DATE OF SERVICE: 02/18/2018 SUBJECTIVE: Awake, alert, responsive this morning, surprisingly no sedation. OBJECTIVE: VITAL SIGNS: Pulse 124, blood pressure 139/49, sat 96% respirations 20. I's and O's are 1290 in, 260 out. CHEST: Minimal crackles. CARDIAC: Normal S1, S2, no gallops. ABDOMEN: Soft, no mass. LABORATORY DATA: The pO2 was only 47, pCO2 38__ on a rate of 20, 65% FIO2. Electrolytes are normal, chloride 116. White count 10,000, H&H is 12 and 37, platelet count normal. X-RAY FINDINGS: X-ray pending. IMPRESSION: Respiratory failure, congestive heart failure, pneumonia, intracerebral hemorrhage. PLAN: Start nutrition, PT. Control blood pressure. Wean slowly. Prognosis remains guarded. Large right cerebral infarct with obstructive hydrocephalus and brain stem compression. As per Neurosurgery. One-half hour critical care time. I will follow. [facility]ITALL[facility]
--- NOTE | 2018-02-18 17:30 | PDOC.CTH ---
Cardiology Progress Note - Subjective Pt opens eyes to voice. - Objective Vital Signs Temp Pulse Pulse Pulse Resp BP BP 02/18/18 16:00 101.7 F H 40 H 02/18/18 15:00 133 H 02/18/18 14:04 128 H 129 H 132/53 L 128/55 L 02/18/18 14:00 35 H 02/18/18 13:40 101.4 F H 02/18/18 13:11 124 H 02/18/18 12:00 102 F H 41 H 02/18/18 11:17 127 H 02/18/18 10:00 43 H 02/18/18 08:00 100.2 F H 41 H 02/18/18 07:12 100.2 F H 122 H 40 H 02/18/18 07:11 122 H 02/18/18 06:00 99.9 F H 39 H Pulse Ox Pulse Ox Pulse Ox 02/18/18 16:00 02/18/18 15:00 02/18/18 14:04 95 95 02/18/18 14:00 02/18/18 13:40 02/18/18 13:11 02/18/18 12:00 02/18/18 11:17 02/18/18 10:00 02/18/18 08:00 02/18/18 07:12 99 02/18/18 07:11 94 L 02/18/18 06:00 Admit Weight 267 lb Weight 267 lb 02/17/18 02/18/18 02/19/18 06:59 06:59 06:59 Intake Total 240 1290 2265 Output Total 700 2664 1360 Balance -460 -1374 905 - Physical Examination Neck: no JVD present Lungs: CTA, unlabored respirations Heart: PMI normal, RRR Abdomen: no HSM, NT/ND - Labs Result Diagrams: 02/18/18 06:05 02/18/18 06:05 Troponin/CKMB CK-MB (CK-2) 1.4 ng/mL (0-6.6) 02/15/18 19:38 Troponin I 0.025 ng/mL (< 0.028) 02/17/18 07:30 - Assessment/Plan 1. Cardiomyopathy of unknown etiology 2. CVA 3. Respiraty failure cardiac pichardo, no new recommendations. Conceivable pt may have had emboli from apex of heart but is less common than once thought. EF may also be depressed secondary to neurologic insult. At this point, from a CV standpoint, option on treatment are limited. Would like to see pts neurologic status prior to any further therapy from CV standpoint.
[2018-02-18] MEDS: Lisinopril 10 MG TAB PO SCH (20:02)
[2018-02-18] MEDS: Azithromycin 500 MG in Sodium Chloride 0.9% 250 ML 250 ML IVPB SCH (23:40)
[2018-02-19] MEDS: niCARdipine HCl 50 MG in Sodium Chloride 0.9% 250 ML 230 ML IVPB SCH ×2 (01:09→06:29)
[2018-02-19] MEDS: Cefepime 2 GM in Sodium Chloride 0.9% 100 ML IVPB SCH ×3 (01:13→23:26)
[2018-02-19] MEDS: Lorazepam 2 MG/ML VIAL SLOW IVP PRN (02:32)
[2018-02-19] MEDS: Acetaminophen 325 MG TAB PO PRN ×4 (02:36→22:47)
[2018-02-19 05:07] LABS: Anion Gap 16 mmol/L (10-20); BUN (Urea Nitrogen) 24 mg/dL (7.0-18.7); Calc. Creatinine Clearance 143 mL/min (70-130); Calcium 8.9 mg/dL (7.8-10.44); Carbon Dioxide 20 mmol/L (22-29); Chloride 116 mmol/L (98-107); Estimated GFR-MDRD 75; Glucose 337 mg/dL (70-105); Potassium 3.6 mmol/L (3.5-5.1); Sodium 148 mmol/L (136-145)
[2018-02-19 05:14] LABS: Lymphocytes 13 % (21-51); MDiff Complete? YES; Mean Corpuscular HGB CONC 31.8 g/dL (32.0-36.0); Mean Corpuscular Hemoglobin 27.9 pg (27.0-31.0); Mean Corpuscular Volume 87.8 fl (81.0-99.0); Mean Platelet Volume 9.1 fL (7.4-10.4); Monocytes 3 % (0-10); Neutrophil 84 % (42-75); PLT Morphology Comment Appears Adequate; Platelet Count 188 thou/uL (130-400); RBC Distribution Width 12.6 % (11.5-14.5); White Blood Cell (WBC) Count 12.8 thou/uL (4.8-10.8)
[2018-02-19] MEDS: HumaLOG 300 UNITS/3 ML VIAL SC PRN ×4 (06:28→21:41)
[2018-02-19 07:00] LABS: CO2 Tension 27.1 mmHg (35.0-45.0); pH, Arterial 7.46 (7.35-7.45)
[2018-02-19 07:01] LABS: ALV-art Gradient 343.725 (0-20); Actual Bicarbonate (HCO3a) 18.9 mEq/L (22-26); Base Excess (BEa) -3.7 mEq/L (0 (+/-) 2.5); Calcium, Ionized 1.2 mmol/L (1.12-1.30); Hemoglobin (Hb) 11.7 g/dL (12.0-16.0); O2 Tension (PaO2) 50.2 mmHg (80.0-100.0); Puncture Site LINE
--- NOTE | 2018-02-19 08:18 | CT ---
PRELIMINARY REPORT/[facility]/EMERGENCY AFTER HOURS PROCEDURE: Addendum created by Bobby Wei MD on 02/19/2018 4:02 AM Central Time ([place] & [place]) THIS REPORT CONTA INS FINDINGS THAT MAY BE CRITICAL TO PATIENT CARE. The findings were verbally communicated via teleph one conference with DAVID Dumont at 4:02 AM CDT on 02/19/2018. The findings were acknowledged and u nderstood. Initial Report created on 02/19/2018 3:54 AM Central Time ([place] & [place]) EXAM: CT Head Without Intravenous Contrast CLINICAL HISTORY: 42 years old, female; Signs and symptoms and device placement; Cerebral fluid drainiage device or dick nt; Other: Stroke; Patient HX: F/u hydrocephalus, stroke TECHNIQUE: Axial computed tomography images of the head/brain without intravenous contrast. COMPARISON: No relevant prior studies available. FINDINGS: Brain: Abnormal area of hypoattenuation within the right alana-cerebellum, with associated cerebral ed martín and slight leftward shift of midline structures, compatible with infarction. Small amount of hype rattenuating material within the infarction, likely hemorrhagic transformation. Ventricles: See below. Bones/joints: Changes of right occipital craniectomy. No acute fracture. Soft tissues: Normal. Sinuses: Minimal ethmoid sinus disease. Mastoid air cells: Normal as visualized. No mastoid effusion. Tubes, lines and devices: Right frontal approach ventriculostomy catheter terminates within the poste rior horn right lateral ventricle. No hydrocephalus. IMPRESSION: 1. Abnormal area of hypoattenuation within the right alana-cerebellum, with associated cerebral edema and slight leftward shift of midline structures, compatible with infarction. Small amount of hyperatt enuating material within the infarction, likely hemorrhagic transformation. 2. Incidental/non-acute findings are described above. Thank you for allowing us to participate in the care of your patient. Dictated and Authenticated by: Bobby Wei MD 02/19/2018 3:54 AM Central Time ([place] & [place]) FINAL REPORT EMERGENT AFTER HOURS CT OF BRAIN PERFORMED WITHOUT CONTRAST ENHANCEMENT: HISTORY: Stroke symptoms, followup of hydrocephalus. COMPARISON: The 02/17/18 study. FINDINGS: There is a right occipital craniotomy change. There is blood now seen in the right cerebellum associ ated with some low-attenuation density. There is effacement of the 4th ventricle associated with thi s related to mass effect. A ventriculoperitoneal shunt tube is present. The tip of the tube is in t he right occipital horn. The ventricles are much less dilated than on the prior examination. The ma stoid air cells are clear. There is mucosal change within the ethmoid air cell region. IMPRESSION: 1. Hemorrhagic transformation of what appears to be a right cerebellar infarct with some fairly mini mal blood clot associated with the low attenuation changes seen in this area. The 5th ventricle is e ffaced related to the mass effect related to the edema. A ventriculoperitoneal shunt tube is in plac e, the tip within the right occipital horn. 2. This report is in agreement with the temporary report issued by [facility]. POS: [facility]
--- NOTE | 2018-02-19 08:35 | PRG ---
DATE OF SERVICE: 02/19/2018 This morning she is intubated on the vent, no sedation. PHYSICAL EXAMINATION: VITAL SIGNS: Pulse 131, blood pressure is 127/88. She is still on nicardipine at 10 mg an hour. I have told the nurse to decrease it to 5. X-ray still shows extensive pulmonary edema. NEUROLOGIC: She barely opens her eyes. CHEST: Decreased breath sounds, minimal crackles. CARDIAC: Sinus tachycardia. ABDOMEN: Soft. No masses. EXTREMITIES: No edema. NEUROLOGIC: As noted. She is encephalopathic. LABORATORY: White count 12,000, H&H 12 and 37, platelet count 188. PO2 was only 50, pCO2 77.46, rat e of 14, 60%, 550, PEEP of 7. BUN and creatinine are normal. X-rays as noted. CT of the brain ordered. IMPRESSION: 1. Status post cerebellar hemorrhage, status post craniotomy. 2. Respiratory failure. 3. Congestive heart failure. 4. Diabetes. PLAN: Empiric antibiotics, neb treatments, supportive care. Added Coreg to her present regime along with Cozaar and Zestril. Including diuretics. I will follow. One-half hour critical care time.
--- NOTE | 2018-02-19 08:36 | RAD ---
PORTABLE CHEST: HISTORY: CCU followup. Dyspnea. COMPARISON: 02/18/18. FINDINGS: ET tube and NG tube remain in place. Cardiomegaly again noted. Diffuse right lung alveolar infiltra deandre again seen. The left lung infiltrates are less pronounced today. No other interval change. POS: [facility]
[2018-02-19] MEDS ORDERED: Sodium Bicarbonate Tab 325 MG TAB PER TUBE PRN (09:17)
[2018-02-19] MEDS ORDERED: Pancrelipase DR 12000 1 CAP FS PRN (09:17)
[2018-02-19] MEDS: Losartan 25 MG TAB PO SCH ×2 (09:40→12:35)
[2018-02-19] MEDS: Pantoprazole 40 MG VIAL IVP SCH (09:40)
[2018-02-19] MEDS: Furosemide 40 MG/4 ML VIAL SLOW IVP SCH ×2 (09:40→21:38)
[2018-02-19] MEDS: Lisinopril 10 MG TAB PO SCH ×2 (09:40→21:38)
[2018-02-19] MEDS: Docusate 100 MG CAP PO SCH ×2 (09:40→21:38)
[2018-02-19] MEDS ORDERED: Carvedilol 6.25 MG TAB PO SCH ×2 (09:45→17:00)
--- NOTE | 2018-02-19 09:48 | PDOC.PN ---
- Subjective Encounter Start Date: 02/18/18 Encounter Start Time: 14:00 Patient is seen today, intubated , no sedation, responding with verbal commands opeing eys, No family memeber at bedside, discused with nurse earlier today. - Objective Resuscitation Status: Resuscitation Status FULL:Full Resuscitation MAR Reviewed: Yes Vital Signs & Weight: Vital Signs (12 hours) Temp Pulse BP Pulse Ox 02/19/18 09:44 137/76 02/19/18 09:40 137/76 02/19/18 08:48 130 H 02/19/18 06:43 136 H 96 02/19/18 04:00 100.8 F H 02/19/18 02:42 131 H 137/76 02/19/18 00:00 101.3 F H 02/18/18 22:19 123 H 129/69 Weight Admit Weight 267 lb Weight 267 lb Most Recent Monitor Data Heart Rate from ECG 130 NIBP 129/76 NIBP BP-Mean 94 Respiration from ECG 35 SpO2 99 I&O: 02/18/18 02/19/18 02/20/18 06:59 06:59 06:59 Intake Total 1290 2970 Output Total 2664 2160 Balance -1374 810 Result Diagrams: 02/19/18 04:47 02/19/18 04:47 Additional Labs: Accuchecks 02/19/18 02/18/18 02/18/18 06:29 21:21 16:06 POC Glucose 321 H 249 H 273 H 02/18/18 12:14 POC Glucose 295 H Radiology Reviewed by me: Yes Phys Exam - Physical Examination ventricular drain/ Dressings on the head. no external bleeding noted. Neck: no JVD Respiratory: no wheezing, clear to auscultation bilateral Cardiovascular: RRR, no significant murmur Gastrointestinal: soft, non-tender Dx/Plan (1) Aspiration pneumonia Code(s): J69.0 - PNEUMONITIS DUE TO INHALATION OF FOOD AND VOMIT Status: Acute Comment: pt on IV Abx to continue at this time. Coninue with Duo nebs/ Albuteral nebs Prn Wheezing. (2) Cerebellar infarction Code(s): I63.9 - CEREBRAL INFARCTION, UNSPECIFIED Status: Acute Comment: Undervent Suboccipetal resection of necrotic tissue, biospy pending.Intracerebral hemorrhage. (3) Diabetes mellitus Code(s): E11.9 - TYPE 2 DIABETES MELLITUS WITHOUT COMPLICATIONS Status: Acute Comment: SSI. (4) Hydrocephalus Code(s): G91.9 - HYDROCEPHALUS, UNSPECIFIED Status: Acute Comment: Neurosurgey manageming with ventricular Drain/ decompression. (5) Respiratory failure Code(s): J96.90 - RESPIRATORY FAILURE, UNSP, UNSP W HYPOXIA OR HYPERCAPNIA Status: Acute Comment: Intubated and mechanical ventilation, manGED BY CRITICAL CARE. - Plan cont current plan of care, jones catheter, continue antibiotics, social media marketing specialist , respiratory therapy, DVT proph w/SCDs * . Review of Systems - Review of Systems Other: Unable to perform ROS due to intubated. - Medications/Allergies Allergies/Adverse Reactions: Allergies Allergy/AdvReac Type Severity Reaction Status Date / Time amoxicillin Allergy Unverified 02/16/18 00:08 Medications: Current Medications Acetaminophen (Tylenol) 650 mg PO Q4H PRN PRN Reason: Headache/Fever or Pain Last Admin: 02/19/18 02:36 Dose: 650 mg Al Hydroxide/Mg Hydroxide (Maalox) 30 ml PO Q6H PRN PRN Reason: Heartburn or Indigestion Albuterol/Ipratropium (Duoneb) 3 ml NEB N5PB-LD [facility] Lipase/Protease/Amylase ([place] [address]) 1 cap FS .PER PROTOCOL PRN PRN Reason: TUBE OCCLUSION PROTOCOL Carvedilol (Coreg) 6.25 mg PO BID-WM [facility] Carvedilol (Coreg) 6.25 mg PO NOW [facility] Stop: 02/19/18 11:00 Last Admin: 02/19/18 09:44 Dose: 6.25 mg Dextrose/Water (Dextrose 50%) 25 gm SLOW IVP PRN PRN PRN Reason: Hypoglycemia Docusate Sodium (Colace) 100 mg PO BID [facility] Last Admin: 02/19/18 09:40 Dose: 100 mg Furosemide (Lasix) 40 mg SLOW IVP BID [facility] Last Admin: 02/19/18 09:40 Dose: 40 mg Glucagon (Glucagon) 1 mg IM PRN PRN PRN Reason: Hypoglycemia Guaifenesin/Dextromethorphan (Robitussin Dm) 15 ml PO Q4H PRN PRN Reason: Cough Dextrose/Water (D5w) 1,000 mls @ 0 mls/hr IV .Q0M PRN; As Directed PRN Reason: Hypoglycemia Cefepime HCl 2 gm/ Sodium (Chloride) 100 mls @ 200 mls/hr IVPB 0000,1200 [facility] Last Admin: 02/19/18 01:13 Dose: 100 mls Nicardipine HCl 50 mg/ Sodium (Chloride) 250 mls @ 0 mls/hr IVPB INF OLIVIA PRN Reason: As Directed Last Admin: 02/19/18 06:29 Dose: 250 mls Fentanyl Citrate 2,000 mcg/ (Sodium Chloride) 100 mls @ 0 mls/hr IV INF OLIVIA; Per Protocol PRN Reason: Protocol Stop: 03/19/18 15:39 Fentanyl Citrate (Fentanyl Bolus) 250 mls @ 0 mls/hr IVPB PRN PRN; As Directed PRN Reason: Breakthrough pain/agitation Stop: 03/19/18 15:39 Insulin Human Lispro (Humalog) 0 units SC .MODERATE SLIDING SC PRN PRN Reason: Moderate Correctional Scale Last Admin: 02/19/18 06:28 Dose: 8 unit Labetalol HCl (Normodyne) 20 mg SLOW IVP Q6H PRN PRN Reason: HR > 110 OR SBP > 140 Last Admin: 02/18/18 02:03 Dose: 20 mg Lactulose (Lactulose) 20 gm PO DAILYPRN PRN PRN Reason: Constipation Lisinopril (Zestril) 10 mg PO BID [facility] Last Admin: 02/19/18 09:40 Dose: 10 mg Lorazepam (Ativan) 2 mg SLOW IVP Q1H PRN PRN Reason: Breakthrough agitation Stop: 03/19/18 15:39 Last Admin: 02/19/18 02:32 Dose: 2 mg Losartan Potassium (Cozaar) 50 mg PO DAILY [facility] Last Admin: 02/19/18 09:40 Dose: 50 mg Magnesium Hydroxide (Milk Of Magnesium) 30 ml PO DAILYPRN PRN PRN Reason: Constipation Morphine Sulfate (Morphine) 2 mg SLOW IVP Q1H PRN PRN Reason: breakthrough pain/agitation Stop: 03/19/18 15:39 Discontinue Previous Narcotic Pain Medications And Benzodiazepines 1 each FS .ONE [facility] Stop: 03/19/18 15:39 Ondansetron HCl (Zofran) 4 mg IVP Q6H PRN PRN Reason: Nausea/Vomiting Ondansetron HCl (Zofran Odt) 4 mg PO Q6H PRN PRN Reason: Nausea/Vomiting Pantoprazole Sodium (Protonix) 40 mg IVP DAILY [facility] Last Admin: 02/19/18 09:40 Dose: 40 mg Propofol (Diprivan) 1,000 mg IV INF PRN; Protocol PRN Reason: TO ACHIEVE GOAL RASS Stop: 03/19/18 15:39 Propofol (Diprivan Bolus) 20 mg IV Q5MIN PRN PRN Reason: BREAKTHROUGH AGITATION Stop: 03/19/18 15:39 Sodium Bicarbonate (Bicarbonate, Sodium) 650 mg PER TUBE .PER PROTOCOL PRN PRN Reason: ENTERAL TUBE OCCLUSION Sodium Chloride (Flush - Normal Saline) 10 ml IVF Q12HR [facility] Last Admin: 02/19/18 09:41 Dose: 10 ml Sodium Chloride (Flush - Normal Saline) 10 ml IVF PRN PRN PRN Reason: Saline Flush Sodium Chloride (Flush - Normal Saline) 10 ml IV DAILY [facility] Last Admin: 02/19/18 09:41 Dose: 10 ml
--- NOTE | 2018-02-19 13:48 | PDOC.PN ---
- Subjective Encounter Start Date: 02/19/18 Encounter Start Time: 11:00 Malgorzata is seen today, remains intubated and sleeping , Discused with Nurse, pt is started on Antihypertensives, having low Blood pressures and worseing BG levels. - Objective Resuscitation Status: Resuscitation Status FULL:Full Resuscitation MAR Reviewed: Yes Vital Signs & Weight: Vital Signs (12 hours) Temp Pulse Pulse Pulse Resp BP BP 02/19/18 13:00 100.5 F H 02/19/18 12:29 126 H 02/19/18 11:00 101.7 F H 02/19/18 10:39 120 H 120 H 106/58 L 02/19/18 10:31 120 H 02/19/18 10:00 35 H 02/19/18 09:44 137/76 02/19/18 09:40 137/76 02/19/18 09:00 100.9 F H 02/19/18 08:48 130 H 02/19/18 08:00 100.4 F H 130 H 36 H 02/19/18 06:43 136 H 02/19/18 04:00 100.8 F H 02/19/18 02:42 131 H 137/76 BP Pulse Ox Pulse Ox Pulse Ox 02/19/18 13:00 02/19/18 12:29 02/19/18 11:00 02/19/18 10:39 107/59 L 97 98 02/19/18 10:31 02/19/18 10:00 02/19/18 09:44 02/19/18 09:40 02/19/18 09:00 02/19/18 08:48 02/19/18 08:00 02/19/18 06:43 96 02/19/18 04:00 02/19/18 02:42 Weight Admit Weight 267 lb Weight 267 lb Most Recent Monitor Data Heart Rate from ECG 122 NIBP 111/69 NIBP BP-Mean 80 Respiration from ECG 36 SpO2 100 I&O: 02/18/18 02/19/18 02/20/18 06:59 06:59 06:59 Intake Total 1290 2970 120 Output Total 2664 2160 653 Balance -1374 810 -533 Result Diagrams: 02/19/18 04:47 02/19/18 04:47 Additional Labs: Accuchecks 02/19/18 02/19/1802/18/18 09:47 06:29 21:21 POC Glucose 300 H 321 H 249 H 02/18/18 16:06 POC Glucose 273 H Radiology Reviewed by me: Yes Phys Exam - Physical Examination Neck: no nodes, no JVD Respiratory: no wheezing, no rales Cardiovascular: RRR, no significant murmur Gastrointestinal: soft, non-tender Musculoskeletal: no edema, pulses present Skin: no rash, normal turgor Dx/Plan (1) Aspiration pneumonia Code(s): J69.0 - PNEUMONITIS DUE TO INHALATION OF FOOD AND VOMIT Status: Acute Comment: pt on IV Abx to continue at this time. Coninue with Duo nebs/ Albuteral nebs Prn Wheezing. (2) Cerebellar infarction Code(s): I63.9 - CEREBRAL INFARCTION, UNSPECIFIED Status: Acute Comment: Undervent Suboccipetal resection of necrotic tissue, biospy pending.Intracerebral hemorrhage. (3) Diabetes mellitus Code(s): E11.9 - TYPE 2 DIABETES MELLITUS WITHOUT COMPLICATIONS Status: Acute Comment: SSI. will add levemir 15 untis, discussed with Dietitian to change the fluids to low glycemic index. for post surgery, keep BG 140-180. (4) Hydrocephalus Code(s): G91.9 - HYDROCEPHALUS, UNSPECIFIED Status: Acute Comment: Neurosurgey manageming with ventricular Drain/ decompression. (5) Respiratory failure Code(s): J96.90 - RESPIRATORY FAILURE, UNSP, UNSP W HYPOXIA OR HYPERCAPNIA Status: Acute Comment: Intubated and mechanical ventilation, manGED BY CRITICAL CARE. - Plan cont current plan of care, continue antibiotics, director of social work, DVT proph w/ SCDs * . Review of Systems - Review of Systems Other: Unable to obtain, pt is intubated; - Medications/Allergies Allergies/Adverse Reactions: Allergies Allergy/AdvReac Type Severity Reaction Status Date / Time amoxicillin Allergy Severe Anaphylaxis Verified 02/19/18 13:27 Penicillins Allergy Severe Anaphylaxis Verified 02/19/18 12:34 Medications: Current Medications Acetaminophen (Tylenol) 650 mg PO Q4H PRN PRN Reason: Headache/Fever or Pain Last Admin: 02/19/18 11:42 Dose: 650 mg Al Hydroxide/Mg Hydroxide (Maalox) 30 ml PO Q6H PRN PRN Reason: Heartburn or Indigestion Albuterol/Ipratropium (Duoneb) 3 ml NEB [id number] OLIVIA Last Admin: 02/19/18 12:28 Dose: 3 ml Lipase/Protease/Amylase (Ramon Gamb[place] [id number]) 1 cap FS .PER PROTOCOL PRN PRN Reason: TUBE OCCLUSION PROTOCOL Carvedilol (Coreg) 6.25 mg PO BID-[facility] Dextrose/Water (Dextrose 50%) 25 gm SLOW IVP PRN PRN PRN Reason: Hypoglycemia Docusate Sodium (Colace) 100 mg PO BID [facility] Last Admin: 02/19/18 09:40 Dose: 100 mg Furosemide (Lasix) 40 mg SLOW IVP BID [facility] Last Admin: 02/19/18 09:40 Dose: 40 mg Glucagon (Glucagon) 1 mg IM PRN PRN PRN Reason: Hypoglycemia Guaifenesin/Dextromethorphan (Robitussin Dm) 15 ml PO Q4H PRN PRN Reason: Cough Dextrose/Water (D5w) 1,000 mls @ 0 mls/hr IV .Q0M PRN; As Directed PRN Reason: Hypoglycemia Cefepime HCl 2 gm/ Sodium (Chloride) 100 mls @ 200 mls/hr IVPB 0000,1200 OLIVIA Last Admin: 02/19/18 11:42 Dose: 100 mls Nicardipine HCl 50 mg/ Sodium (Chloride) 250 mls @ 0 mls/hr IVPB INF OLIVIA PRN Reason: As Directed Last Admin: 02/19/18 06:29 Dose: 250 mls Fentanyl Citrate 2,000 mcg/ (Sodium Chloride) 100 mls @ 0 mls/hr IV INF OLIVIA; Per Protocol PRN Reason: Protocol Stop: 03/19/18 15:39 Fentanyl Citrate (Fentanyl Bolus) 250 mls @ 0 mls/hr IVPB PRN PRN; As Directed PRN Reason: Breakthrough pain/agitation Stop: 03/19/18 15:39 Insulin Human Lispro (Humalog) 0 units SC .MODERATE SLIDING SC PRN PRN Reason: Moderate Correctional Scale Last Admin: 02/19/18 09:47 Dose: 6 unit Labetalol HCl (Normodyne) 20 mg SLOW IVP Q6H PRN PRN Reason: HR > 110 OR SBP > 140 Last Admin: 02/18/18 02:03 Dose: 20 mg Lactulose (Lactulose) 20 gm PO DAILYPRN PRN PRN Reason: Constipation Lisinopril (Zestril) 10 mg PO BID [facility] Last Admin: 02/19/18 09:40 Dose: 10 mg Lorazepam (Ativan) 2 mg SLOW IVP Q1H PRN PRN Reason: Breakthrough agitation Stop: 03/19/18 15:39 Last Admin: 02/19/18 02:32 Dose: 2 mg Losartan Potassium (Cozaar) 50 mg PO DAILY [facility] Last Admin: 02/19/18 12:35 Dose: Not Given Magnesium Hydroxide (Milk Of Magnesium) 30 ml PO DAILYPRN PRN PRN Reason: Constipation Morphine Sulfate (Morphine) 2 mg SLOW IVP Q1H PRN PRN Reason: breakthrough pain/agitation Stop: 03/19/18 15:39 Discontinue Previous Narcotic Pain Medications And Benzodiazepines 1 each FS .ONE [facility] Stop: 03/19/18 15:39 Ondansetron HCl (Zofran) 4 mg IVP Q6H PRN PRN Reason: Nausea/Vomiting Ondansetron HCl (Zofran Odt) 4 mg PO Q6H PRN PRN Reason: Nausea/Vomiting Pantoprazole Sodium (Protonix) 40 mg IVP DAILY [facility] Last Admin: 02/19/18 09:40 Dose: 40 mg Propofol (Diprivan) 1,000 mg IV INF PRN; Protocol PRN Reason: TO ACHIEVE GOAL RASS Stop: 03/19/18 15:39 Propofol (Diprivan Bolus) 20 mg IV Q5MIN PRN PRN Reason: BREAKTHROUGH AGITATION Stop: 03/19/18 15:39 Sodium Bicarbonate (Bicarbonate, Sodium) 650 mg PER TUBE .PER PROTOCOL PRN PRN Reason: ENTERAL TUBE OCCLUSION Sodium Chloride (Flush - Normal Saline) 10 ml IVF Q12HR [facility] Last Admin: 02/19/18 09:41 Dose: 10 ml Sodium Chloride (Flush - Normal Saline) 10 ml IVF PRN PRN PRN Reason: Saline Flush Sodium Chloride (Flush - Normal Saline) 10 ml IV DAILY [facility] Last Admin: 02/19/18 09:41 Dose: 10 ml
[2018-02-19] MEDS: Carvedilol 3.125 MG TAB PO SCH (21:38)
[2018-02-20] MEDS: Docusate 100 MG CAP PO SCH ×3 (01:09→19:54)
[2018-02-20] MEDS: HumaLOG 300 UNITS/3 ML VIAL SC PRN ×4 (03:13→21:05)
[2018-02-20] MEDS ORDERED: Insulin Glargine 15 UNITS in Pre-Filled Syringe 1 EACH SC SCH ×2 (04:00→21:00)
[2018-02-20 06:29] LABS: Anion Gap 12 mmol/L (10-20); BUN (Urea Nitrogen) 27 mg/dL (7.0-18.7); Calc. Creatinine Clearance 156 mL/min (70-130); Calcium 9.1 mg/dL (7.8-10.44); Carbon Dioxide 25 mmol/L (22-29); Chloride 118 mmol/L (98-107); Estimated GFR-MDRD 82; Glucose 358 mg/dL (70-105); Sodium 151 mmol/L (136-145)
[2018-02-20 06:45] LABS: Band 2 % (5-11); Eosinophils 1 % (0-10); Hemoglobin 11.6 g/dL (12.0-16.0); Lymphocytes 21 % (21-51); MDiff Complete? YES; Mean Corpuscular HGB CONC 31.3 g/dL (32.0-36.0); Mean Corpuscular Hemoglobin 27.7 pg (27.0-31.0); Mean Corpuscular Volume 88.5 fl (81.0-99.0); Mean Platelet Volume 8.8 fL (7.4-10.4); Monocytes 5 % (0-10); Neutrophil 71 % (42-75); PLT Morphology Comment Appears Adequate; Platelet Count 190 thou/uL (130-400); RBC Distribution Width 12.8 % (11.5-14.5); Red Blood Cell (RBC) Count 4.21 mill/uL (4.20-5.40)
[2018-02-20 07:07] LABS: pH, Arterial 7.44 (7.35-7.45)
[2018-02-20 07:08] LABS: Actual Bicarbonate (HCO3a) 23.7 mEq/L (22-26); CO2 Tension 35.4 mmHg (35.0-45.0); O2 Tension (PaO2) 60.7 mmHg (80.0-100.0)
[2018-02-20 07:09] LABS: Hematocrit-ABG 34.2 % (36.0-47.0); Hemoglobin (Hb) 12.1 g/dL (12.0-16.0)
[2018-02-20 07:13] LABS: Calcium, Ionized 1.2 mmol/L (1.12-1.30)
[2018-02-20 07:14] LABS: Puncture Site RRA
[2018-02-20] MEDS: Acetaminophen 325 MG TAB PO PRN (07:33)
--- NOTE | 2018-02-20 08:14 | PRG ---
DATE OF SERVICE: 02/20/2018 She is intubated on the vent. PHYSICAL EXAMINATION: VITAL SIGNS: Pulse 110, blood pressure 155/96, sats 100%, respiration 29. I's and O's 1198 in, 3454 out. CHEST: Bilateral rhonchi and crackles. CARDIAC: Normal S1, S2, no gallops. ABDOMEN: Soft, no masses. LABORATORY: White count 15,000, H&H 11 and 37, platelet count is normal. PO2 of 60, pCO2 of 37.44. Sodium 151, chloride 118. Glucose 358. IMPRESSION: 1. Posterior circulation infarct cerebellum, status post craniotomy. 2. Respiratory failure. 3. Congestive heart failure. 4. Possible pneumonia with fever, probably central in origin. PLAN: She is not weanable at this stage. We will continue aggressive cardiac care, PT, nutrition an d supportive care. I will follow. One-half hour critical care time.
--- NOTE | 2018-02-20 08:33 | RAD ---
PORTABLE CHEST 1 VIEW: Date: 02/20/18 Time: 0505 hours HISTORY: Respiratory failure. FINDINGS/IMPRESSION: The left hemidiaphragm is relatively poorly visualized on the current exam compared to the previous s tudy. Haziness in the left upper lung zones has worsened. Diffuse right lung infiltrates are stable. Line and tube placements are unchanged in position. POS: RAJIV
[2018-02-20] MEDS: Furosemide 40 MG/4 ML VIAL SLOW IVP SCH ×2 (09:58→21:05)
[2018-02-20] MEDS: Pantoprazole 40 MG VIAL IVP SCH (09:58)
[2018-02-20] MEDS: Carvedilol 3.125 MG TAB PO SCH ×3 (09:58→21:05)
[2018-02-20] MEDS: Insulin Glargine 10 UNITS in Pre-Filled Syringe 1 EACH SC SCH ×2 (09:59→21:05)
[2018-02-20] MEDS: Lisinopril 10 MG TAB PO SCH ×2 (09:59→19:56)
[2018-02-20] MEDS: Cefepime 2 GM in Sodium Chloride 0.9% 100 ML IVPB SCH ×2 (11:35→23:25)
--- NOTE | 2018-02-20 14:32 | PDOC.CTH ---
Cardiology Progress Note - Subjective NO significant CV changes overnight except low HR noted on coreg. - Objective Vital Signs Temp Pulse Pulse Pulse Resp BP BP 02/20/18 13:12 110 H 32 H 02/20/18 13:00 100.5 F H 02/20/18 12:00 27 H 02/20/18 11:57 111 H 113/76 02/20/18 11:00 101.2 F H 115 H 113 H 113/76 02/20/18 09:59 125/84 02/20/18 09:00 100.8 F H 02/20/18 08:00 101.3 F H 109 H 34 H 02/20/18 07:00 101.3 F H 02/20/18 06:55 111 H 125/84 02/20/18 06:53 107 H 36 H 02/20/18 06:00 33 H 02/20/18 04:00 34 H 02/20/18 03:00 100.2 F H BP Pulse Ox Pulse Ox Pulse Ox 02/20/18 13:12 100 02/20/18 13:00 02/20/18 12:00 02/20/18 11:57 02/20/18 11:00 121/86 78 L 100 02/20/18 09:59 02/20/18 09:00 02/20/18 08:00 02/20/18 07:00 02/20/18 06:55 100 02/20/18 06:53 98 02/20/18 06:00 02/20/18 04:00 02/20/18 03:00 Admit Weight 267 lb Weight 267 lb 02/19/18 02/20/18 02/21/18 06:59 06:59 06:59 Intake Total 2970 1198 180 Output Total 2160 3454 1454 Balance 810 -7052 -9099 - Physical Examination Neck: carotid US brisk, no JVD present Lungs: CTA Heart: RRR Abdomen: no HSM, NT/ND, soft Extremities: + femoral B - Labs Result Diagrams: 02/20/18 06:13 02/20/18 06:13 Troponin/CKMB CK-MB (CK-2) 1.4 ng/mL (0-6.6) 02/15/18 19:38 Troponin I 0.025 ng/mL (< 0.028) 02/17/18 07:30 - Assessment/Plan 1. Cardiomyopathy of unknown etiology 2. CVA 3. Respiratory failure titrate coreg to 3.125mg TID from BID dosing. No other CV changes at this point. Add ACEI when HR improves on coreg.
[2018-02-21] MEDS: HumaLOG 300 UNITS/3 ML VIAL SC PRN ×4 (03:25→20:32)
[2018-02-21 06:25] LABS: Anion Gap 12 mmol/L (10-20); BUN (Urea Nitrogen) 31 mg/dL (7.0-18.7); Calc. Creatinine Clearance 136 mL/min (70-130); Calcium 9.4 mg/dL (7.8-10.44); Carbon Dioxide 28 mmol/L (22-29); Chloride 119 mmol/L (98-107); Estimated GFR-MDRD 73; Glucose 420 mg/dL (70-105); Potassium 4.4 mmol/L (3.5-5.1); Sodium 155 mmol/L (136-145)
[2018-02-21 06:45] LABS: Anisocytosis SLIGHT = 6-15 cells (100X) (0-5/hpf); Band 3 % (5-11); Hemoglobin 11.9 g/dL (12.0-16.0); Lymphocytes 15 % (21-51); MDiff Complete? YES; Mean Corpuscular HGB CONC 31.2 g/dL (32.0-36.0); Mean Corpuscular Hemoglobin 27.8 pg (27.0-31.0); Mean Corpuscular Volume 89.2 fl (81.0-99.0); Mean Platelet Volume 8.9 fL (7.4-10.4); Monocytes 4 % (0-10); Neutrophil 78 % (42-75); Nucleated RBC 1 % (0); PLT Morphology Comment Appears Adequate; Platelet Count 184 thou/uL (130-400); RBC Distribution Width 12.7 % (11.5-14.5); Red Blood Cell (RBC) Count 4.29 mill/uL (4.20-5.40)
[2018-02-21 07:36] LABS: CO2 Tension 40.9 mmHg (35.0-45.0); O2 Tension (PaO2) 86.4 mmHg (80.0-100.0); pH, Arterial 7.43 (7.35-7.45)
[2018-02-21 07:37] LABS: Actual Bicarbonate (HCO3a) 26.5 mEq/L (22-26); Hematocrit-ABG 32.7 % (36.0-47.0); Hemoglobin (Hb) 12.1 g/dL (12.0-16.0)
[2018-02-21 07:38] LABS: Calcium, Ionized 1.3 mmol/L (1.12-1.30); Puncture Site RRA
--- NOTE | 2018-02-21 07:52 | RAD ---
CHEST 1 VIEW: Date: 02/21/18 HISTORY: 42-year-old female with history of respiratory insufficiency. COMPARISON: 02/20/18. FINDINGS: NG tube and endotracheal tubes remain in place. Monitor leads overlie the chest. Left subclavian cath eter in place. Persistent cardiomegaly with bilateral vascular congestion and some interstitial and a lveolar parenchymal changes bilaterally and left pleural effusion. Appearance does appear to be sligh tly improved when compared to prior studies. No significant new process. IMPRESSION: Continued vascular congestion and interstitial and alveolar parenchymal changes with cardiomegaly and left pleural effusion. Continue short-term follow-up for clearing or stability. POS: REBECCA
[2018-02-21 07:55] LABS: ALV-art Gradient 218.975 (0-20)
[2018-02-21] MEDS: Lisinopril 10 MG TAB PO SCH ×2 (08:57→19:49)
[2018-02-21] MEDS: Insulin Glargine 10 UNITS in Pre-Filled Syringe 1 EACH SC SCH (08:57)
[2018-02-21] MEDS: Pantoprazole 40 MG VIAL IVP SCH (08:58)
[2018-02-21] MEDS: Furosemide 40 MG/4 ML VIAL SLOW IVP SCH ×2 (08:58→20:32)
[2018-02-21] MEDS: Carvedilol 3.125 MG TAB PO SCH ×3 (08:58→20:32)
[2018-02-21] MEDS: Docusate 100 MG CAP PO SCH ×2 (08:58→20:11)
[2018-02-21] MEDS: Cefepime 2 GM in Sodium Chloride 0.9% 100 ML IVPB SCH ×2 (11:15→23:03)
--- NOTE | 2018-02-21 11:43 | PDOC.CTH ---
Cardiology Progress Note - Subjective No new issues. Remains intubated. - Objective Vital Signs Temp Pulse Resp BP Pulse Ox 02/21/18 11:08 110 H 121/77 02/21/18 10:00 18 02/21/18 08:57 142/90 H 02/21/18 08:00 99.1 F 108 H 19 02/21/18 07:00 99.1 F 02/21/18 06:53 105 H 142/90 H 02/21/18 06:50 105 H 21 H 100 02/21/18 06:00 22 H 02/21/18 04:00 23 H 02/21/18 03:00 99.7 F H 02/21/18 02:27 102 H 02/21/18 02:00 22 H 02/21/18 00:45 103 H 19 100 02/21/18 00:00 21 H Admit Weight 267 lb Weight 259 lb 0.69 oz 02/20/18 02/21/18 02/22/18 06:59 06:59 06:59 Intake Total 1198 1547 Output Total 5694 4475 930 Balance -5363 -2298 -930 - Physical Examination General/Neuro: alert & oriented x3, NAD Neck: no JVD present Lungs: CTA, unlabored respirations Heart: RRR Abdomen: NT/ND Extremities: + edema B (trace) - Telemetry Telemetry Rhythm: S tach - Labs Result Diagrams: 02/21/18 05:53 02/21/18 05:53 Troponin/CKMB CK-MB (CK-2) 1.4 ng/mL (0-6.6) 02/15/18 19:38 Troponin I 0.025 ng/mL (< 0.028) 02/17/18 07:30 - Assessment/Plan 1. Cardiomyopathy of unknown etiology 2. CVA 3. Respiratory failure 4. Possible pneumonia 5. 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 PLAN: - Up titrate coreg to 6.25mg BID - Add ACEI once coreg fully up titrated or HR improves.
--- NOTE | 2018-02-21 11:52 | PRG ---
DATE OF SERVICE: 02/21/2018 SUBJECTIVE: Mr. Coelho looked at me when I walked in the room. She moves her extremities equally. She is in no distress. She nods that she is comfortable ventilated. OBJECTIVE: VITAL SIGNS: She is afebrile now. Her last temperature elevation was yesterday morning. Currently blood pressure 105/81, heart rate 112, oximetry is 93, respiratory rate is 18. LUNGS: Clear anteriorly. HEART: Regular rhythm. S1 and S2 are normal. ABDOMEN: Soft and nontender. EXTREMITIES: Without clubbing, cyanosis, or edema. Intake and output is negative 2298. A pH 7.43, CO2 of 40, pO2 86. Sodium 155, potassium 4.4, chloride 119, bicarbonate 20, BUN 31, creatinine 1.01. White count 15, he moglobin 11.9, platelets 184,000. Chest radiograph shows bilateral effusions and cardiomegaly. IMPRESSION: 1. Respiratory failure associated with a cerebrovascular accident. 2. Difficult intubation. 3. Underlying cardiomyopathy, it is unclear whether this is acute or chronic. 4. Mild hyperosmolar state. 5. Fever, on cefepime, now afebrile. Chest radiograph does not clearly show a dense alveolar infilt rate, but she is certainly at risk for pneumonia. It would be the most likely source of the fever. 6. Status post craniotomy. 7. Anemia associated with blood draws (blood loss anemia). We will continue with ventilatory support. It would not be concerned about her mild hyperosmolar sta te given her thrombotic cerebrovascular accident. If her sodium continues to rise, we should adjust fluids and cut back on Lasix. I will continue to try to slowly decrease ventilatory support. Since she has difficult intubation, I would start her on steroids to hopefully minimize vocal cord edema. Critical care time was 30 minutes. I met with the family at the room and answered all their question s.
[2018-02-21] MEDS ORDERED: Insulin Glargine 10 UNITS in Pre-Filled Syringe 1 EACH SC SCH (13:30)
--- NOTE | 2018-02-21 15:15 | PDOC.PN ---
- Subjective Encounter Start Date: 02/20/18 Encounter Start Time: 08:00 Malgorzata remains Intubated. Opened her eyes to commands. still with ventricular Drain. - Objective Resuscitation Status: Resuscitation Status FULL:Full Resuscitation MAR Reviewed: Yes Vital Signs & Weight: Vital Signs (12 hours) Temp Pulse Resp BP Pulse Ox 02/21/18 15:00 100.8 F H 02/21/18 14:43 109 H 131/94 H 02/21/18 14:00 20 02/21/18 13:32 104 H 20 100 02/21/18 11:08 110 H 121/77 02/21/18 11:00 99.7 F H 02/21/18 10:00 18 02/21/18 08:57 142/90 H 02/21/18 08:00 99.1 F 108 H 19 02/21/18 07:00 99.1 F 02/21/18 06:53 105 H 142/90 H 02/21/18 06:50 105 H 21 H 100 02/21/18 06:00 22 H 02/21/18 04:00 23 H Weight Admit Weight 267 lb Weight 259 lb 0.69 oz Most Recent Monitor Data Heart Rate from ECG 108 NIBP 116/77 NIBP BP-Mean 84 Respiration from ECG 21 SpO2 100 I&O: 02/20/18 02/21/18 02/22/18 06:59 06:59 06:59 Intake Total 1198 1547 210 Output Total 1769 9515 1670 [facility] -2256 -2298 -1467 Result Diagrams: 02/21/18 05:53 02/21/18 05:53 Additional Labs: Accuchecks 02/21/18 02/21/18 02/21/18 14:36 08:58 03:26 POC Glucose 370 H 362 H 368 H 02/20/18 02/20/18 20:42 15:04 POC Glucose 298 H 335 H Radiology Reviewed by me: Yes Phys Exam - Physical Examination HEENT: PERRLA Neck: no nodes, no JVD Respiratory: no wheezing, no rales Cardiovascular: RRR, no significant murmur Gastrointestinal: soft, non-tender Musculoskeletal: no edema, pulses present Lymphatic: no nodes Dx/Plan (1) Aspiration pneumonia Code(s): J69.0 - PNEUMONITIS DUE TO INHALATION OF FOOD AND VOMIT Status: Acute Comment: pt on IV Abx to continue at this time. Coninue with Duo nebs/ Albuteral nebs Prn Wheezing.Chest xray showed mild venous Congestion. No pneumonia noted. (2) Cerebellar infarction Code(s): I63.9 - CEREBRAL INFARCTION, UNSPECIFIED Status: Acute Comment: Undervent Suboccipetal resection of necrotic tissue, biospy pending.Intracerebral hemorrhage. (3) Diabetes mellitus Code(s): E11.9 - TYPE 2 DIABETES MELLITUS WITHOUT COMPLICATIONS Status: Acute Comment: SSI. Poorly controlled, Levemir increased to 10 untis SC BID, Will continue to increase Long ancting insulin to keep fasting Bg <120 (4) Hydrocephalus Code(s): G91.9 - HYDROCEPHALUS, UNSPECIFIED Status: Acute Comment: Neurosurgey manageming with ventricular Drain/ decompression. (5) Respiratory failure Code(s): J96.90 - RESPIRATORY FAILURE, UNSP, UNSP W HYPOXIA OR HYPERCAPNIA Status: Acute Comment: Intubated and mechanical ventilation, manGED BY CRITICAL CARE. - Plan cont current plan of care, continue antibiotics, respiratory therapy, DVT proph w/SCDs * . Review of Systems - Review of Systems Other: Intubated so no ROS - Medications/Allergies Allergies/Adverse Reactions: Allergies Allergy/AdvReac Type Severity Reaction Status Date / Time amoxicillin Allergy Severe Anaphylaxis Verified 02/19/18 13:27 Penicillins Allergy Severe Anaphylaxis Verified 02/19/18 12:34 Medications: Current Medications Acetaminophen (Tylenol) 650 mg PO Q4H PRN PRN Reason: Headache/Fever or Pain Last Admin: 02/20/18 07:33 Dose: 650 mg Al Hydroxide/Mg Hydroxide (Maalox) 30 ml PO Q6H PRN PRN Reason: Heartburn or Indigestion Albuterol/Ipratropium (Duoneb) 3 ml NEB [id number] [facility] Last Admin: 02/21/18 13:32 Dose: 3 ml Lipase/Protease/Amylase (Ramon [place] [id number]) 1 cap FS .PER PROTOCOL PRN PRN Reason: TUBE OCCLUSION PROTOCOL Carvedilol (Coreg) 3.125 mg PO TID [facility] Last Admin: 02/21/18 14:39 Dose: 3.125 mg Dextrose/Water (Dextrose 50%) 25 gm SLOW IVP PRN PRN PRN Reason: Hypoglycemia Docusate Sodium (Colace) 100 mg PO BID [facility] Last Admin: 02/21/18 08:58 Dose: Not Given Furosemide (Lasix) 40 mg SLOW IVP BID [facility] Last Admin: 02/21/18 08:58 Dose: 40 mg Glucagon (Glucagon) 1 mg IM PRN PRN PRN Reason: Hypoglycemia Guaifenesin/Dextromethorphan (Robitussin Dm) 15 ml PO Q4H PRN PRN Reason: Cough Dextrose/Water (D5w) 1,000 mls @ 0 mls/hr IV .Q0M PRN; As Directed PRN Reason: Hypoglycemia Cefepime HCl 2 gm/ Sodium (Chloride) 100 mls @ 200 mls/hr IVPB 0000,1200 OLIVIA Last Admin: 02/21/18 11:15 Dose: 100 mls Nicardipine HCl 50 mg/ Sodium (Chloride) 250 mls @ 0 mls/hr IVPB INF OLIVIA PRN Reason: As Directed Last Admin: 02/19/18 06:29 Dose: 250 mls Fentanyl Citrate 2,000 mcg/ (Sodium Chloride) 100 mls @ 0 mls/hr IV INF OLIVIA; Per Protocol PRN Reason: Protocol Stop: 03/19/18 15:39 Fentanyl Citrate (Fentanyl Bolus) 250 mls @ 0 mls/hr IVPB PRN PRN; As Directed PRN Reason: Breakthrough pain/agitation Stop: 03/19/18 15:39 Insulin Glargine 15 units/ (Miscellaneous Medication) 0.15 mls @ 0 mls/hr SC HS OLIVIA Insulin Glargine 15 units/ (Miscellaneous Medication) 0.15 mls @ 0 mls/hr SC QAM OLIVIA Insulin Human Lispro (Humalog) 0 units SC .MODERATE SLIDING SC PRN PRN Reason: Moderate Correctional Scale Last Admin: 02/21/18 14:40 Dose: 10 unit Labetalol HCl (Normodyne) 20 mg SLOW IVP Q6H PRN PRN Reason: HR > 110 OR SBP > 140 Last Admin: 02/18/18 02:03 Dose: 20 mg Lactulose (Lactulose) 20 gm PO DAILYPRN PRN PRN Reason: Constipation Lisinopril (Zestril) 10 mg PO BID [facility] Last Admin: 02/21/18 08:57 Dose: 10 mg Lorazepam (Ativan) 2 mg SLOW IVP Q1H PRN PRN Reason: Breakthrough agitation Stop: 03/19/18 15:39 Last Admin: 02/19/18 02:32 Dose: 2 mg Magnesium Hydroxide (Milk Of Magnesium) 30 ml PO DAILYPRN PRN PRN Reason: Constipation Methylprednisolone Sodium Succinate (Solu-Medrol) 40 mg IVP DAILY OLIVIA Morphine Sulfate (Morphine) 2 mg SLOW IVP Q1H PRN PRN Reason: breakthrough pain/agitation Stop: 03/19/18 15:39 Discontinue Previous Narcotic Pain Medications And Benzodiazepines 1 each FS .ONE [facility] Stop: 03/19/18 15:39 Ondansetron HCl (Zofran) 4 mg IVP Q6H PRN PRN Reason: Nausea/Vomiting Ondansetron HCl (Zofran Odt) 4 mg PO Q6H PRN PRN Reason: Nausea/Vomiting Pantoprazole Sodium (Protonix) 40 mg IVP DAILY [facility] Last Admin: 02/21/18 08:58 Dose: 40 mg Propofol (Diprivan) 1,000 mg IV INF PRN; Protocol PRN Reason: TO ACHIEVE GOAL RASS Stop: 03/19/18 15:39 Propofol (Diprivan Bolus) 20 mg IV Q5MIN PRN PRN Reason: BREAKTHROUGH AGITATION Stop: 03/19/18 15:39 Sodium Bicarbonate (Bicarbonate, Sodium) 650 mg PER TUBE .PER PROTOCOL PRN PRN Reason: ENTERAL TUBE OCCLUSION Sodium Chloride (Flush - Normal Saline) 10 ml IVF Q12HR [facility] Last Admin: 02/21/18 08:58 Dose: 10 ml Sodium Chloride (Flush - Normal Saline) 10 ml IVF PRN PRN PRN Reason: Saline Flush Sodium Chloride (Flush - Normal Saline) 10 ml IV DAILY [facility] Last Admin: 02/21/18 08:58 Dose: 10 ml
--- NOTE | 2018-02-21 15:19 | PDOC.PN ---
- Subjective Encounter Start Date: 02/21/18 Encounter Start Time: 13:00 -: old records requested/rev Patient is intubated, and Sleeping , did not respond to My commands. - Objective Resuscitation Status: Resuscitation Status FULL:Full Resuscitation MAR Reviewed: Yes Vital Signs & Weight: Vital Signs (12 hours) Temp Pulse Resp BP Pulse Ox 02/21/18 15:00 100.8 F H 02/21/18 14:43 109 H 131/94 H 02/21/18 14:00 20 02/21/18 13:32 104 H 20 100 02/21/18 11:08 110 H 121/77 02/21/18 11:00 99.7 F H 02/21/18 10:00 18 02/21/18 08:57 142/90 H 02/21/18 08:00 99.1 F 108 H 19 02/21/18 07:00 99.1 F 02/21/18 06:53 105 H 142/90 H 02/21/18 06:50 105 H 21 H 100 02/21/18 06:00 22 H 02/21/18 04:00 23 H Weight Admit Weight 267 lb Weight 259 lb 0.69 oz Most Recent Monitor Data Heart Rate from ECG 108 NIBP 116/77 NIBP BP-Mean 84 Respiration from ECG 21 SpO2 100 I&O: 02/20/18 02/21/18 02/22/18 06:59 06:59 06:59 Intake Total 1198 1547 210 Output Total 3457 8325 1673 [facility]2256 -2298 -1467 Result Diagrams: 02/21/18 05:53 02/21/18 05:53 Additional Labs: Accuchecks 02/21/18 02/21/18 02/21/18 14:36 08:58 03:26 POC Glucose 370 H 362 H 368 H 02/20/18 02/20/18 20:42 15:04 POC Glucose 298 H 335 H Radiology Reviewed by me: Yes Phys Exam - Physical Examination Neck: no nodes Respiratory: no wheezing, no rales Cardiovascular: RRR Gastrointestinal: soft, non-tender Musculoskeletal: no edema, pulses present Neurological: moves all 4 limbs Lymphatic: no nodes Skin: no rash, normal turgor Dx/Plan (1) Aspiration pneumonia Code(s): J69.0 - PNEUMONITIS DUE TO INHALATION OF FOOD AND VOMIT Status: Acute Comment: pt on IV Abx to continue at this time. Coninue with Duo nebs/ Albuteral nebs Prn Wheezing.Chest xray showed mild venous Congestion. No pneumonia noted. (2) Cerebellar infarction Code(s): I63.9 - CEREBRAL INFARCTION, UNSPECIFIED Status: Acute Comment: Undervent Suboccipetal resection of necrotic tissue, biospy pending.Intracerebral hemorrhage. (3) Diabetes mellitus Code(s): E11.9 - TYPE 2 DIABETES MELLITUS WITHOUT COMPLICATIONS Status: Acute Comment: SSI. Poorly controlled, Levemir increased to 15 untis BID, will add an extra levemir 10 untis now, and plan to Increase to keep Bg 140-180. (4) Hydrocephalus Code(s): G91.9 - HYDROCEPHALUS, UNSPECIFIED Status: Acute Comment: Neurosurgey manageming with ventricular Drain/ decompression. (5) Respiratory failure Code(s): J96.90 - RESPIRATORY FAILURE, UNSP, UNSP W HYPOXIA OR HYPERCAPNIA Status: Acute Comment: Intubated and mechanical ventilation, manGED BY CRITICAL CARE. - Plan cont current plan of care, continue antibiotics, social economist, respiratory therapy, DVT proph w/SCDs * . Review of Systems - Review of Systems Other: Intubated No ROS. - Medications/Allergies Allergies/Adverse Reactions: Allergies Allergy/AdvReac Type Severity Reaction Status Date / Time amoxicillin Allergy Severe Anaphylaxis Verified 02/19/18 13:27 Penicillins Allergy Severe Anaphylaxis Verified 02/19/18 12:34 Medications: Current Medications Acetaminophen (Tylenol) 650 mg PO Q4H PRN PRN Reason: Headache/Fever or Pain Last Admin: 02/20/18 07:33 Dose: 650 mg Al Hydroxide/Mg Hydroxide (Maalox) 30 ml PO Q6H PRN PRN Reason: Heartburn or Indigestion Albuterol/Ipratropium (Duoneb) 3 ml NEB [id number] OLIVIA Last Admin: 02/21/18 13:32 Dose: 3 ml Lipase/Protease/Amylase ([place] [id number]) 1 cap FS .PER PROTOCOL PRN PRN Reason: TUBE OCCLUSION PROTOCOL Carvedilol (Coreg) 3.125 mg PO TID [facility] Last Admin: 02/21/18 14:39 Dose: 3.125 mg Dextrose/Water (Dextrose 50%) 25 gm SLOW IVP PRN PRN PRN Reason: Hypoglycemia Docusate Sodium (Colace) 100 mg PO BID [facility] Last Admin: 02/21/18 08:58 Dose: Not Given Furosemide (Lasix) 40 mg SLOW IVP BID [facility] Last Admin: 02/21/18 08:58 Dose: 40 mg Glucagon (Glucagon) 1 mg IM PRN PRN PRN Reason: Hypoglycemia Guaifenesin/Dextromethorphan (Robitussin Dm) 15 ml PO Q4H PRN PRN Reason: Cough Dextrose/Water (D5w) 1,000 mls @ 0 mls/hr IV .Q0M PRN; As Directed PRN Reason: Hypoglycemia Cefepime HCl 2 gm/ Sodium (Chloride) 100 mls @ 200 mls/hr IVPB 0000,1200 OLIVIA Last Admin: 02/21/18 11:15 Dose: 100 mls Nicardipine HCl 50 mg/ Sodium (Chloride) 250 mls @ 0 mls/hr IVPB INF OLIVIA PRN Reason: As Directed Last Admin: 02/19/18 06:29 Dose: 250 mls Fentanyl Citrate 2,000 mcg/ (Sodium Chloride) 100 mls @ 0 mls/hr IV INF OLIVIA; Per Protocol PRN Reason: Protocol Stop: 03/19/18 15:39 Fentanyl Citrate (Fentanyl Bolus) 250 mls @ 0 mls/hr IVPB PRN PRN; As Directed PRN Reason: Breakthrough pain/agitation Stop: 03/19/18 15:39 Insulin Glargine 15 units/ (Miscellaneous Medication) 0.15 mls @ 0 mls/hr SC HS OLIVIA Insulin Glargine 15 units/ (Miscellaneous Medication) 0.15 mls @ 0 mls/hr SC QAM OLVIIA Insulin Human Lispro (Humalog) 0 units SC .MODERATE SLIDING SC PRN PRN Reason: Moderate Correctional Scale Last Admin: 02/21/18 14:40 Dose: 10 unit Labetalol HCl (Normodyne) 20 mg SLOW IVP Q6H PRN PRN Reason: HR > 110 OR SBP > 140 Last Admin: 02/18/18 02:03 Dose: 20 mg Lactulose (Lactulose) 20 gm PO DAILYPRN PRN PRN Reason: Constipation Lisinopril (Zestril) 10 mg PO BID [facility] Last Admin: 02/21/18 08:57 Dose: 10 mg Lorazepam (Ativan) 2 mg SLOW IVP Q1H PRN PRN Reason: Breakthrough agitation Stop: 03/19/18 15:39 Last Admin: 02/19/18 02:32 Dose: 2 mg Magnesium Hydroxide (Milk Of Magnesium) 30 ml PO DAILYPRN PRN PRN Reason: Constipation Methylprednisolone Sodium Succinate (Solu-Medrol) 40 mg IVP DAILY [facility] Morphine Sulfate (Morphine) 2 mg SLOW IVP Q1H PRN PRN Reason: breakthrough pain/agitation Stop: 03/19/18 15:39 Discontinue Previous Narcotic Pain Medications And Benzodiazepines 1 each FS .ONE [facility] Stop: 03/19/18 15:39 Ondansetron HCl (Zofran) 4 mg IVP Q6H PRN PRN Reason: Nausea/Vomiting Ondansetron HCl (Zofran Odt) 4 mg PO Q6H PRN PRN Reason: Nausea/Vomiting Pantoprazole Sodium (Protonix) 40 mg IVP DAILY [facility] Last Admin: 02/21/18 08:58 Dose: 40 mg Propofol (Diprivan) 1,000 mg IV INF PRN; Protocol PRN Reason: TO ACHIEVE GOAL RASS Stop: 03/19/18 15:39 Propofol (Diprivan Bolus) 20 mg IV Q5MIN PRN PRN Reason: BREAKTHROUGH AGITATION Stop: 03/19/18 15:39 Sodium Bicarbonate (Bicarbonate, Sodium) 650 mg PER TUBE .PER PROTOCOL PRN PRN Reason: ENTERAL TUBE OCCLUSION Sodium Chloride (Flush - Normal Saline) 10 ml IVF Q12HR [facility] Last Admin: 02/21/18 08:58 Dose: 10 ml Sodium Chloride (Flush - Normal Saline) 10 ml IVF PRN PRN PRN Reason: Saline Flush Sodium Chloride (Flush - Normal Saline) 10 ml IV DAILY [facility] Last Admin: 02/21/18 08:58 Dose: 10 ml
--- NOTE | 2018-02-21 15:58 | PRG ---
DATE OF SERVICE: Mrs. Coelho is awake and follows commands briskly. Her EVD is open at 10 cm of water and functional . Her last CT scan from 02/19/2018 showed reasonable cerebellar decompression and complete ventricular decompression. She is currently being weaned from the ventilator. I anticipate we will continue with ventricular dr mcleod through the weekend and begin more aggressively weaning next week. I will raise the setting t o 15 cm of water currently and plan on a head CT on Friday.
[2018-02-21] MEDS ORDERED: Insulin Glargine 15 UNITS in Pre-Filled Syringe 1 EACH SC SCH (21:00)
[2018-02-22] MEDS: HumaLOG 300 UNITS/3 ML VIAL SC PRN ×4 (04:19→20:52)
[2018-02-22 06:03] LABS: Anion Gap 9 mmol/L (10-20); BUN (Urea Nitrogen) 32 mg/dL (7.0-18.7); Calc. Creatinine Clearance 126 mL/min (70-130); Calcium 9.7 mg/dL (7.8-10.44); Carbon Dioxide 32 mmol/L (22-29); Chloride 118 mmol/L (98-107); Estimated GFR-MDRD 67; Glucose 441 mg/dL (70-105); Potassium 4.2 mmol/L (3.5-5.1); Sodium 155 mmol/L (136-145)
[2018-02-22 06:18] LABS: Band 1 % (5-11); Hemoglobin 12.3 g/dL (12.0-16.0); Lymphocytes 20 % (21-51); MDiff Complete? YES; Mean Corpuscular Hemoglobin 26.8 pg (27.0-31.0); Mean Corpuscular Volume 89.4 fl (81.0-99.0); Mean Platelet Volume 9.1 fL (7.4-10.4); Monocytes 9 % (0-10); Neutrophil 70 % (42-75); PLT Morphology Comment Appears Adequate; Platelet Count 223 thou/uL (130-400); RBC Distribution Width 12.7 % (11.5-14.5); White Blood Cell (WBC) Count 15.7 thou/uL (4.8-10.8)
[2018-02-22 07:52] LABS: CO2 Tension 45.8 mmHg (35.0-45.0); pH, Arterial 7.43 (7.35-7.45)
[2018-02-22 07:55] LABS: Hematocrit-ABG 34.2 % (36.0-47.0); Hemoglobin (Hb) 12.3 g/dL (12.0-16.0); O2 Tension (PaO2) 87.3 mmHg (80.0-100.0)
[2018-02-22 07:56] LABS: Calcium, Ionized 1.3 mmol/L (1.12-1.30)
[2018-02-22 07:57] LABS: Analyzer IN Cardio OR; Puncture Site LRA
[2018-02-22] MEDS: Carvedilol 3.125 MG TAB PO SCH ×3 (08:38→20:35)
[2018-02-22] MEDS: Pantoprazole 40 MG VIAL IVP SCH (08:38)
[2018-02-22] MEDS: Lisinopril 10 MG TAB PO SCH ×2 (08:38→20:35)
[2018-02-22] MEDS: Furosemide 40 MG/4 ML VIAL SLOW IVP SCH ×2 (08:38→20:35)
[2018-02-22] MEDS: Docusate 100 MG CAP PO SCH ×2 (08:38→20:34)
[2018-02-22] MEDS ORDERED: Insulin Glargine 15 UNITS in Pre-Filled Syringe 1 EACH SC SCH (09:00)
[2018-02-22] MEDS: Cefepime 2 GM in Sodium Chloride 0.9% 100 ML IVPB SCH (11:15)
--- NOTE | 2018-02-22 12:52 | PDOC.CTH ---
Cardiology Progress Note - Subjective Remains intubated, sedated. - Objective Vital Signs Temp Pulse Resp BP Pulse Ox 02/22/18 12:45 105 H 18 130/89 97 02/22/18 10:49 106 H 123/81 02/22/18 10:00 19 02/22/18 08:00 16 02/22/18 07:14 98.7 F 108 H 15 100 02/22/18 07:00 98.7 F 02/22/18 06:47 106 H 122/86 02/22/18 06:44 107 H 30 H 99 02/22/18 06:00 17 02/22/18 04:00 19 02/22/18 03:00 100.0 F H 02/22/18 02:47 109 H 02/22/18 02:00 18 Admit Weight 267 lb Weight 259 lb 0.69 oz 02/21/18 02/22/18 02/23/18 06:59 06:59 06:59 Intake Total 1547 1318 102 Output Total 9513 1912 5006 Balance -3448 -7887 -0430 - Physical Examination General/Neuro: other: (intubatyed) Neck: no JVD present Lungs: CTA, unlabored respirations Heart: RRR Abdomen: NT/ND Extremities: + edema B (1+) - Telemetry Telemetry Rhythm: S tach - Labs Result Diagrams: 02/22/18 05:36 02/22/18 05:36 Troponin/CKMB CK-MB (CK-2) 1.4 ng/mL (0-6.6) 02/15/18 19:38 Troponin I 0.025 ng/mL (< 0.028) 02/17/18 07:30 - Assessment/Plan 1. Cardiomyopathy of unknown etiology 2. CVA 3. Respiratory failure 4. Possible pneumonia 5. 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 6. Hypernatremia. PLAN: - Continue coreg at 6.25mg BID - Add ACEI once coreg fully up titrated or HR improves. - Dr. Valentin will resume care in the morning.
--- NOTE | 2018-02-22 13:03 | PRG ---
DATE OF SERVICE: 02/22/2018 SUBJECTIVE: Sloane Coelho awakens quickly. OBJECTIVE: GENERAL: Heart rate 76, blood pressure 123/81. She is in no distress. Respiratory rate is in the l ow 20s. GENERAL: She has excellent team guide strength and lower extremity strength is symmetrical. LUNGS: Clear. HEART: Regular rhythm. ABDOMEN: Soft. EXTREMITIES: Without asymmetry. NEURO: As above. LABORATORY DATA: White count 15.7, hemoglobin 12.3, platelets 223. Sodium 155, potassium 4.2, chloride 118, bicarbonate 32, BUN 32, creatinine 1.09, glucose 441. Her i nsulin will be adjusted today. PH is 7.43, CO2 of 45, pO2 of 87. IMPRESSION: 1. Respiratory failure. I would continue to wean her slowly. 2. Cerebrovascular accident. 3. Difficult intubation, now on steroids. Hopefully, she will pass a leak test today, so she told m e she had abundant upper airway tissue. 4. Underlying cardiomyopathy. 5. Mild hyperosmolar state. 6. ? Pneumonia, on cefepime, afebrile now. 7. Status post craniotomy. 8. Blood loss anemia associated with blood draws. Neurosurgery is continuing with ventricular drainage, vein was raised to 15 cm. We will continue to follow with the physicians caring for her. Critical care time 30 minutes.
--- NOTE | 2018-02-22 13:37 | PRG ---
DATE OF SERVICE: 02/22/2018 I visited Ms. Coelho. Her EVD is functional and she is wide awake and following commands. I hope t hat she will be extubated soon. With regard to her ventriculostomy, we have a CT planned for the natalie nuñez. Depending on these results, can more aggressively wean her from the ventricular catheter at th at time. I discussed the patient's situation with her mother.
--- NOTE | 2018-02-22 14:59 | PDOC.PN ---
- Subjective Encounter Start Date: 02/22/18 Encounter Start Time: 15:02 patient seen and examined today following posterior circulation CVA and Acute Respiratory Failure. Awake and able to answer questions using head movements. No acute events overnight. - Objective Resuscitation Status: Resuscitation Status FULL:Full Resuscitation MAR Reviewed: Yes Vital Signs & Weight: Vital Signs (12 hours) Temp Pulse Resp BP Pulse Ox 02/22/18 14:41 111 H 137/97 H 02/22/18 14:00 20 02/22/18 12:45 105 H 18 130/89 97 02/22/18 12:00 99.1 F 18 02/22/18 10:49 106 H 123/81 02/22/18 10:00 19 02/22/18 08:00 16 02/22/18 07:14 98.7 F 108 H 15 100 02/22/18 07:00 98.7 F 02/22/18 06:47 106 H 122/86 02/22/18 06:44 107 H 30 H 99 02/22/18 06:00 17 02/22/18 04:00 19 02/22/18 03:00 100.0 F H Weight Admit Weight 267 lb Weight 259 lb 0.69 oz Most Recent Monitor Data Heart Rate from ECG 113 NIBP 137/97 NIBP BP-Mean 110 Respiration from ECG 20 SpO2 97 I&O: 02/21/18 02/22/18 02/23/18 06:59 06:59 06:59 Intake Total 1547 1318 312 Output Total 3845 3834 1998 [facility] -2298 -2516 -1686 Result Diagrams: 02/22/18 05:36 02/22/18 05:36 Additional Labs: Accuchecks 02/22/18 02/22/18 02/21/18 10:45 04:20 20:31 POC Glucose 398 H 401 H 311 H 02/21/18 14:36 POC Glucose 370 H Phys Exam - Physical Examination Constitutional: NAD HEENT: moist MMs, sclera anicteric, oral pharynx no lesions Neck: no JVD, supple, full ROM Respiratory: no wheezing, no rales, no rhonchi, clear to auscultation bilateral Cardiovascular: RRR, no significant murmur, no rub Gastrointestinal: soft, non-tender, no distention, positive bowel sounds Musculoskeletal: no edema, pulses present Neurological: non-focal Awake; able to answer questions with gestures. Skin: no rash, normal turgor Dx/Plan (1) Cardiomyopathy Code(s): I42.9 - CARDIOMYOPATHY, UNSPECIFIED Status: Acute Qualifiers: Cardiomyopathy type: other Qualified Code(s): I42.8 - Other cardiomyopathies (2) CVA (cerebral vascular accident) Code(s): I63.9 - CEREBRAL INFARCTION, UNSPECIFIED Status: Acute Comment: Posterior circulation CVA. s/p craniotomy. (3) Hypernatremia Code(s): E87.0 - HYPEROSMOLALITY AND HYPERNATREMIA Status: Acute (4) Hyperglycemia Code(s): R73.9 - HYPERGLYCEMIA, UNSPECIFIED Status: Acute Comment: 2/2 DM and aggravated by parenteral steroids. (5) Diabetes mellitus Code(s): E11.9 - TYPE 2 DIABETES MELLITUS WITHOUT COMPLICATIONS Status: Acute Qualifiers: Diabetes mellitus type: type 2 Comment: SSI. Poorly controlled, 2/2 steroids. Will continue to titrate insulin requirements. (6) Respiratory failure Code(s): J96.90 - RESPIRATORY FAILURE, UNSP, UNSP W HYPOXIA OR HYPERCAPNIA Status: Acute Qualifiers: Chronicity: acute Respiratory failure complication: hypoxia Qualified Code(s): J96.01 - Acute respiratory failure with hypoxia Comment: Intubated and mechanical ventilation. - Plan cont current plan of care, respiratory therapy, DVT proph w/SCDs Will continue ventricular drainage this weekend, then more aggressive weaning next week. Likely extubation tomorrow CT head Friday. Review of Systems - Medications/Allergies Allergies/Adverse Reactions: Allergies Allergy/AdvReac Type Severity Reaction Status Date / Time amoxicillin Allergy Severe Anaphylaxis Verified 02/19/18 13:27 Penicillins Allergy Severe Anaphylaxis Verified 02/19/18 12:34 Medications: Current Medications Acetaminophen (Tylenol) 650 mg PO Q4H PRN PRN Reason: Headache/Fever or Pain Last Admin: 02/20/18 07:33 Dose: 650 mg Al Hydroxide/Mg Hydroxide (Maalox) 30 ml PO Q6H PRN PRN Reason: Heartburn or Indigestion Albuterol/Ipratropium (Duoneb) 3 ml NEB [id number] OLIVIA Last Admin: 02/22/18 12:45 Dose: 3 ml Lipase/Protease/[place]ylase ([place] [id number]) 1 cap FS .PER PROTOCOL PRN PRN Reason: TUBE OCCLUSION PROTOCOL Carvedilol (Coreg) 3.125 mg PO TID [facility] Last Admin: 02/22/18 08:38 Dose: 3.125 mg Dextrose/Water (Dextrose 50%) 25 gm SLOW IVP PRN PRN PRN Reason: Hypoglycemia Docusate Sodium (Colace) 100 mg PO BID [facility] Last Admin: 02/22/18 08:38 Dose: 100 mg Furosemide (Lasix) 40 mg SLOW IVP BID [facility] Last Admin: 02/22/18 08:38 Dose: 40 mg Glucagon (Glucagon) 1 mg IM PRN PRN PRN Reason: Hypoglycemia Guaifenesin/Dextromethorphan (Robitussin Dm) 15 ml PO Q4H PRN PRN Reason: Cough Dextrose/Water (D5w) 1,000 mls @ 0 mls/hr IV .Q0M PRN; As Directed PRN Reason: Hypoglycemia Cefepime HCl 2 gm/ Sodium (Chloride) 100 mls @ 200 mls/hr IVPB 0000,1200 [facility] Last Admin: 02/22/18 11:15 Dose: 100 mls Nicardipine HCl 50 mg/ Sodium (Chloride) 250 mls @ 0 mls/hr IVPB INF OLIVIA PRN Reason: As Directed Last Admin: 02/19/18 06:29 Dose: 250 mls Fentanyl Citrate 2,000 mcg/ (Sodium Chloride) 100 mls @ 0 mls/hr IV INF OLIVIA; Per Protocol PRN Reason: Protocol Stop: 03/19/18 15:39 Fentanyl Citrate (Fentanyl Bolus) 250 mls @ 0 mls/hr IVPB PRN PRN; As Directed PRN Reason: Breakthrough pain/agitation Stop: 03/19/18 15:39 Insulin Glargine 20 units/ (Miscellaneous Medication) 0.2 mls @ 0 mls/hr SC QAM OLIVIA Insulin Glargine 20 units/ (Miscellaneous Medication) 0.2 mls @ 0 mls/hr SC HS OLIVIA Insulin Human Lispro (Humalog) 0 units SC .AGGRESSIVE SLIDING PRN; Protocol PRN Reason: AGGRESSIVE SLIDING SCALE Labetalol HCl (Normodyne) 20 mg SLOW IVP Q6H PRN PRN Reason: HR > 110 OR SBP > 140 Last Admin: 02/18/18 02:03 Dose: 20 mg Lactulose (Lactulose) 20 gm PO DAILYPRN PRN PRN Reason: Constipation Lisinopril (Zestril) 10 mg PO BID [facility] Last Admin: 02/22/18 08:38 Dose: 10 mg Lorazepam (Ativan) 2 mg SLOW IVP Q1H PRN PRN Reason: Breakthrough agitation Stop: 03/19/18 15:39 Last Admin: 02/19/18 02:32 Dose: 2 mg Magnesium Hydroxide (Milk Of Magnesium) 30 ml PO DAILYPRN PRN PRN Reason: Constipation Methylprednisolone Sodium Succinate (Solu-Medrol) 40 mg IVP DAILY [facility] Last Admin: 02/22/18 08:38 Dose: 40 mg Morphine Sulfate (Morphine) 2 mg SLOW IVP Q1H PRN PRN Reason: breakthrough pain/agitation Stop: 03/19/18 15:39 Discontinue Previous Narcotic Pain Medications And Benzodiazepines 1 each FS .ONE [facility] Stop: 03/19/18 15:39 Ondansetron HCl (Zofran) 4 mg IVP Q6H PRN PRN Reason: Nausea/Vomiting Ondansetron HCl (Zofran Odt) 4 mg PO Q6H PRN PRN Reason: Nausea/Vomiting Pantoprazole Sodium (Protonix) 40 mg IVP DAILY [facility] Last Admin: 02/22/18 08:38 Dose: 40 mg Propofol (Diprivan) 1,000 mg IV INF PRN; Protocol PRN Reason: TO ACHIEVE GOAL RASS Stop: 03/19/18 15:39 Propofol (Diprivan Bolus) 20 mg IV Q5MIN PRN PRN Reason: BREAKTHROUGH AGITATION Stop: 03/19/18 15:39 Sodium Bicarbonate (Bicarbonate, Sodium) 650 mg PER TUBE .PER PROTOCOL PRN PRN Reason: ENTERAL TUBE OCCLUSION Sodium Chloride (Flush - Normal Saline) 10 ml IVF Q12HR [facility] Last Admin: 02/22/18 08:38 Dose: 10 ml Sodium Chloride (Flush - Normal Saline) 10 ml IVF PRN PRN PRN Reason: Saline Flush Sodium Chloride (Flush - Normal Saline) 10 ml IV DAILY [facility] Last Admin: 02/22/18 08:39 Dose: 10 ml
[2018-02-22] MEDS: Docusate Sodium 100 MG/10 ML UDCUP PO SCH (20:36)
[2018-02-22] MEDS ORDERED: Insulin Glargine 20 UNITS in Pre-Filled Syringe 1 EACH SC SCH (21:00)
[2018-02-22] MEDS: Labetalol HCl 100 MG/20 ML VIAL SLOW IVP PRN (22:34)
[2018-02-22] MEDS: Lorazepam 2 MG/ML VIAL SLOW IVP PRN (23:06)
[2018-02-23] MEDS: Lorazepam 2 MG/ML VIAL SLOW IVP PRN (03:08)
[2018-02-23 05:28] LABS: #Eosinphils 0.1 thou/uL (0.0-0.7); #Lymphocytes 2.6 thou/uL (1.20-3.40); #Monocytes 1.1 thou/uL (0.11-0.59); #Neutrophils 13.2 thou/uL (1.40-6.50); %Basophils 0.3 % (0.0-1.0); %Eosinophils 0.4 % (0.0-10.0); %Lymphocytes 15.4 % (21.0-51.0); %Monocytes 6.2 % (0.0-10.0); %Neutrophils 77.7 % (42.0-75.0); Hemoglobin 13.2 g/dL (12.0-16.0); Mean Corpuscular HGB CONC 31.7 g/dL (32.0-36.0); Mean Corpuscular Hemoglobin 28.4 pg (27.0-31.0); Mean Corpuscular Volume 89.6 fl (81.0-99.0); Mean Platelet Volume 9.9 fL (7.4-10.4); Platelet Count 224 thou/uL (130-400); RBC Distribution Width 12.7 % (11.5-14.5); Red Blood Cell (RBC) Count 4.65 mill/uL (4.20-5.40)
[2018-02-23] MEDS: HumaLOG 300 UNITS/3 ML VIAL SC PRN ×3 (05:45→16:33)
[2018-02-23 05:52] LABS: Anion Gap 15 mmol/L (10-20); BUN (Urea Nitrogen) 39 mg/dL (7.0-18.7); Calc. Creatinine Clearance 110 mL/min (70-130); Calcium 10.3 mg/dL (7.8-10.44); Carbon Dioxide 31 mmol/L (22-29); Chloride 115 mmol/L (98-107); Estimated GFR-MDRD 57; Glucose 528 mg/dL (70-105); Potassium 4.1 mmol/L (3.5-5.1); Sodium 157 mmol/L (136-145)
[2018-02-23 06:59] LABS: Base Excess (BEa) 5.1 mEq/L (0 (+/-) 2.5); Hemoglobin (Hb) 13.4 g/dL (12.0-16.0); O2 Tension (PaO2) 75.3 mmHg (80.0-100.0); pH, Arterial 7.48 (7.35-7.45)
[2018-02-23 07:00] LABS: Calcium, Ionized 1.3 mmol/L (1.12-1.30); Puncture Site RRA
--- NOTE | 2018-02-23 07:52 | PDOC.CTH ---
Cardiology Progress Note - Subjective Pt following commands. Moving all 4 extremities to command. HR elevated. Still intubated. - Objective Vital Signs Temp Pulse Resp BP Pulse Ox 02/23/18 06:25 129 H 113/77 02/23/18 06:24 128 H 26 H 99 02/23/18 06:00 20 02/23/18 04:00 98.8 F 20 02/23/18 02:38 114 H 02/23/18 02:00 19 02/23/18 00:06 109 H 19 99 02/23/18 00:00 98.8 F 20 02/22/18 22:34 120 H 160/112 H 02/22/18 22:14 115 H 02/22/18 22:00 19 02/22/18 20:35 127/84 02/22/18 20:00 98.8 F 78 20 100 Admit Weight 267 lb Weight 259 lb 0.69 oz 02/22/18 02/23/18 02/24/18 06:59 06:59 06:59 Intake Total 1318 1520 Output Total 0648 2793 Balance -0780 -9112 - Physical Examination General/Neuro: NAD Neck: no JVD present Heart: RRR, other: (tachycardia) Abdomen: no HSM, NT/ND, soft Extremities: + femoral B - Labs Result Diagrams: 02/23/18 04:30 02/23/18 04:30 Troponin/CKMB CK-MB (CK-2) 1.4 ng/mL (0-6.6) 02/15/18 19:38 Troponin I 0.025 ng/mL (< 0.028) 02/17/18 07:30 - Assessment/Plan 1. Cardiomyopathy of unknown etiology 2. CVA 3. Respiratory failure increase coreg vent management per Dr. Brooks. Add ACEI when BP more stable. At this time, HR elevated will be treated first.
--- NOTE | 2018-02-23 08:06 | CT ---
PRELIMINARY REPORT/[facility]/EMERGENCY AFTER HOURS PROCEDURE: EXAM: CT Head Without Intravenous Contrast EXAM DATE/TIME: 02/23/2018 3:30 AM CLINICAL HISTORY: 42 years old, female; Condition or disease; Other: F/u ventricolostomy; Prior surgery; Surgery type: F/u ventricolostomy/cva TECHNIQUE: Axial computed tomography images of the head/brain without intravenous contrast. COMPARISON: CT Brain WO Con 2018-02-19 03:08 FINDINGS: Stable right occipital craniectomy with subjacent hemorrhage and edema in the right cerebellar hemisp here. 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 Mild interval reexpansion of the right lateral ventricle. Possible minimal reexpansion of the fourth ventricle Subarachnoid hemorrhage on the right is grossly stable The paranasal sinuses and mastoid cavities are grossly clear IMPRESSION: Mild interval reexpansion of the right lateral ventricle in this patient with right-sided ventriculos tello. Possible minimal reexpansion of the fourth ventricle Grossly stable postsurgical changes in the right cerebellar hemisphere Grossly stable subarachnoid hemorrhage Thank you for allowing us to participate in the care of your patient. Dictated and Authenticated by: Chiki Garrison MD 02/23/2018 3:50 AM Central Time ([place] & [place]) FINAL REPORT CT BRAIN: FINDINGS/IMPRESSION: Preliminary exam was performed by [facility]. I concur with the dictation from [facility]. There is a craniotomy defect in the right occipital region. Some hemorrhage seen in the right cer ebellar hemisphere, unchanged since the previous exam. Subarachnoid blood again also seen in the righ t sylvian fissure. There has been placement of a ventriculostomy drain. Some surrounding hemorrhage seen at the entry si te of the ventricular drain into the right frontal lobe within the right frontal lobe parenchyma. No significant evidence of hydrocephalus seen. The overall size of the right lateral ventricles appea rs to have slightly increased in size. The left lateral ventricle does not appear to have significant ly changed in size. POS: REBECCA
--- NOTE | 2018-02-23 08:57 | PRG ---
DATE OF SERVICE: Day #8 on the vent. She is a little bit more responsive. Does move all 4 extremities. PHYSICAL EXAMINATION: VITAL SIGNS: She is still tachycardic at 133, blood pressure 118/80, respirations 20, afebrile. I's and O's the last 24 hours have been 1318 in, 3834 out. CHEST: Chest reveals decreased breath sounds, no wheezing. CARDIAC: Normal S1, S2, no gallops. White count 17,000, H&H 13 and 41, platelet count is normal. PO2 75, pCO2 47.48, 25%. Sodium 157, B UN and creatinine are 39 and 1.25. Glucose 443. IMPRESSION: 1. Status post craniotomy, cerebellar hemorrhage, status post ventriculostomy. 2. Azotemia, electrolyte imbalance. 3. Congestive heart failure. 4. Respiratory failure. 5. Renal failure. PLAN: She is on low dose Coreg, Lasix, lisinopril. Appears to be slightly prerenal. Sodium 157. We will try and discontinue the Lasix for 24 hours. Otherwise, continue supportive care, give her some Decadron, reduce upper airway obstruction. Will consider extubation in the next 24-48 hours, in the meantime, nutrition and PT. One-half hour critical care time.
[2018-02-23] MEDS ORDERED: Insulin Glargine 20 UNITS in Pre-Filled Syringe 1 EACH SC SCH (09:00)
[2018-02-23] MEDS ORDERED: Dexamethasone 4 MG in Sodium Chloride 0.9% 50 ML IVPB SCH (09:00)
[2018-02-23] MEDS ORDERED: Dexamethasone 4 mg/ml Vial SLOW IVP SCH (09:00)
--- NOTE | 2018-02-23 09:11 | RAD ---
PORTABLE UPRIGHT FRONTAL CHEST RADIOGRAPH: DATE: 02/23/18. COMPARISON: 02/21/18. HISTORY: Ventilated patient. FINDINGS: Stable endotracheal tube, nasogastric tube, and left-sided vascular catheter. Heart and mediastinal contours are stable. Mild increased density in both lung bases suggests mild vascular prominence or volume loss. No lobar consolidation or alveolar edema. IMPRESSION: No significant interval change. POS: [facility]
[2018-02-23] MEDS: Docusate Sodium 100 MG/10 ML UDCUP PO SCH (09:51)
[2018-02-23] MEDS: Pantoprazole 40 MG VIAL IVP SCH (09:51)
[2018-02-23] MEDS: Carvedilol 3.125 MG TAB PO SCH ×2 (09:52→17:36)
[2018-02-23] MEDS: Lisinopril 10 MG TAB PO SCH (09:52)
[2018-02-23] MEDS: Acetaminophen 325 MG TAB PO PRN (09:52)
[2018-02-23] MEDS: Cefepime 2 GM in Sodium Chloride 0.9% 100 ML IVPB SCH ×2 (12:29)
--- NOTE | 2018-02-23 13:23 | PDOC.PN ---
- Subjective Encounter Start Date: 02/23/18 Encounter Start Time: 13:24 Ms Coelho seen and examined today. She had a posterior circulation CVA and Acute Respiratory Failure. She is awake and able to answer questions using head movements. No acute events overnight. - Objective Resuscitation Status: Resuscitation Status FULL:Full Resuscitation MAR Reviewed: Yes Vital Signs & Weight: Vital Signs (12 hours) Temp Pulse Resp BP Pulse Ox 02/23/18 13:12 135 H 135/75 02/23/18 13:10 135 H 26 H 99 02/23/18 10:26 133 H 113/52 L 02/23/18 09:52 110/70 02/23/18 06:25 129 H 113/77 02/23/18 06:24 128 H 26 H 99 02/23/18 06:00 20 02/23/18 04:00 98.8 F 20 02/23/18 02:38 114 H 02/23/18 02:00 19 Weight Admit Weight 267 lb Weight 259 lb 0.69 oz Most Recent Monitor Data Heart Rate from ECG 119 NIBP 113/77 NIBP BP-Mean 96 Respiration from ECG 17 SpO2 100 I&O: 02/22/18 02/23/18 02/24/18 06:59 06:59 06:59 Intake Total 1318 1520 Output Total 3834 4083 Balance -5266 -6852 Result Diagrams: 02/23/18 04:30 02/23/18 04:30 Additional Labs: Accuchecks 02/23/18 02/23/18 02/22/18 10:01 04:35 20:51 POC Glucose 371 H 443 H 364 H 02/22/18 16:06 POC Glucose 455 H Phys Exam - Physical Examination Constitutional: NAD HEENT: PERRLA, moist MMs, sclera anicteric Neck: supple, full ROM Respiratory: no wheezing, no rales, no rhonchi, clear to auscultation bilateral Cardiovascular: RRR, no significant murmur, no rub Gastrointestinal: soft, non-tender, no distention, positive bowel sounds Musculoskeletal: no edema, pulses present Skin: no rash, normal turgor Dx/Plan (1) Cardiomyopathy Code(s): I42.9 - CARDIOMYOPATHY, UNSPECIFIED Status: Acute Qualifiers: Cardiomyopathy type: other Qualified Code(s): I42.8 - Other cardiomyopathies Comment: Stable. (2) CVA (cerebral vascular accident) Code(s): I63.9 - CEREBRAL INFARCTION, UNSPECIFIED Status: Acute Comment: Patient has Posterior circulation CVA. s/p craniotomy. (3) Hypernatremia Code(s): E87.0 - HYPEROSMOLALITY AND HYPERNATREMIA Status: Acute (4) Hyperglycemia Code(s): R73.9 - HYPERGLYCEMIA, UNSPECIFIED Status: Acute Comment: 2/2 DM and aggravated by parenteral steroids. Steroids discontinued. (5) Diabetes mellitus Code(s): E11.9 - TYPE 2 DIABETES MELLITUS WITHOUT COMPLICATIONS Status: Acute Qualifiers: Diabetes mellitus type: type 2 Comment: SSI. Poorly controlled, 2/2 steroids. Will continue to titrate insulin requirements. (6) Respiratory failure Code(s): J96.90 - RESPIRATORY FAILURE, UNSP, UNSP W HYPOXIA OR HYPERCAPNIA Status: Acute Qualifiers: Chronicity: acute Respiratory failure complication: hypoxia Qualified Code(s): J96.01 - Acute respiratory failure with hypoxia Comment: Intubated and mechanical ventilation. - Plan * . Review of Systems - Medications/Allergies Allergies/Adverse Reactions: Allergies Allergy/AdvReac Type Severity Reaction Status Date / Time amoxicillin Allergy Severe Anaphylaxis Verified 02/19/18 13:27 Penicillins Allergy Severe Anaphylaxis Verified 02/19/18 12:34 Medications: Current Medications Acetaminophen (Tylenol) 650 mg PO Q4H PRN PRN Reason: Headache/Fever or Pain Last Admin: 02/23/18 09:52 Dose: 650 mg Al Hydroxide/Mg Hydroxide (Maalox) 30 ml PO Q6H PRN PRN Reason: Heartburn or Indigestion Albuterol/Ipratropium (Duoneb) 3 ml NEB [id number] PENDING SALE TO [facility] Last Admin: 02/23/18 13:10 Dose: 3 ml Lipase/Protease/[place]ylase ([place] [id number]) 1 cap FS .PER PROTOCOL PRN PRN Reason: TUBE OCCLUSION PROTOCOL Carvedilol (Coreg) 3.125 mg PO TID PENDING SALE TO [facility] Last Admin: 02/23/18 09:52 Dose: 3.125 mg Dexamethasone (Decadron) 4 mg SLOW IVP BID OLIVIA Stop: 02/25/18 09:01 Last Admin: 02/23/18 09:52 Dose: 4 mg Dextrose/Water (Dextrose 50%) 25 gm SLOW IVP PRN PRN PRN Reason: Hypoglycemia Docusate Sodium (Colace Liquid) 100 mg PO BID PENDING SALE TO [facility] Last Admin: 02/23/18 09:51 Dose: 100 mg Glucagon (Glucagon) 1 mg IM PRN PRN PRN Reason: Hypoglycemia Guaifenesin/Dextromethorphan (Robitussin Dm) 15 ml PO Q4H PRN PRN Reason: Cough Dextrose/Water (D5w) 1,000 mls @ 0 mls/hr IV .Q0M PRN; As Directed PRN Reason: Hypoglycemia Cefepime HCl 2 gm/ Sodium (Chloride) 100 mls @ 200 mls/hr IVPB 0000,1200 PENDING SALE TO [facility] Last Admin: 02/23/18 12:29 Dose: 100 mls Nicardipine HCl 50 mg/ Sodium (Chloride) 250 mls @ 0 mls/hr IVPB INF OLIVIA PRN Reason: As Directed Last Admin: 02/19/18 06:29 Dose: 250 mls Fentanyl Citrate 2,000 mcg/ (Sodium Chloride) 100 mls @ 0 mls/hr IV INF OLIVIA; Per Protocol PRN Reason: Protocol Stop: 03/19/18 15:39 Fentanyl Citrate (Fentanyl Bolus) 250 mls @ 0 mls/hr IVPB PRN PRN; As Directed PRN Reason: Breakthrough pain/agitation Stop: 03/19/18 15:39 Insulin Glargine 20 units/ (Miscellaneous Medication) 0.2 mls @ 0 mls/hr SC QAM PENDING SALE TO [facility] Last Admin: 02/23/18 09:53 Dose: 0.2 mls Insulin Glargine 20 units/ (Miscellaneous Medication) 0.2 mls @ 0 mls/hr SC HS PENDING SALE TO [facility] Last Admin: 02/22/18 20:50 Dose: 0.2 mls Insulin Human Lispro (Humalog) 0 units SC .AGGRESSIVE SLIDING PRN; Protocol PRN Reason: AGGRESSIVE SLIDING SCALE Last Admin: 02/23/18 09:59 Dose: 13 units Labetalol HCl (Normodyne) 20 mg SLOW IVP Q6H PRN PRN Reason: HR > 110 OR SBP > 140 Last Admin: 02/22/18 22:34 Dose: 20 mg Lactulose (Lactulose) 20 gm PO DAILYPRN PRN PRN Reason: Constipation Lisinopril (Zestril) 10 mg PO BID PENDING SALE TO [facility] Last Admin: 02/23/18 09:52 Dose: 10 mg Lorazepam (Ativan) 2 mg SLOW IVP Q1H PRN PRN Reason: Breakthrough agitation Stop: 03/19/18 15:39 Last Admin: 02/23/18 03:08 Dose: 2 mg Magnesium Hydroxide (Milk Of Magnesium) 30 ml PO DAILYPRN PRN PRN Reason: Constipation Morphine Sulfate (Morphine) 2 mg SLOW IVP Q1H PRN PRN Reason: breakthrough pain/agitation Stop: 03/19/18 15:39 Discontinue Previous Narcotic Pain Medications And Benzodiazepines 1 each FS .ONE PENDING SALE TO [facility] Stop: 03/19/18 15:39 Ondansetron HCl (Zofran) 4 mg IVP Q6H PRN PRN Reason: Nausea/Vomiting Ondansetron HCl (Zofran Odt) 4 mg PO Q6H PRN PRN Reason: Nausea/Vomiting Pantoprazole Sodium (Protonix) 40 mg IVP DAILY PENDING SALE TO [facility] Last Admin: 02/23/18 09:51 Dose: 40 mg Propofol (Diprivan) 1,000 mg IV INF PRN; Protocol PRN Reason: TO ACHIEVE GOAL RASS Stop: 03/19/18 15:39 Propofol (Diprivan Bolus) 20 mg IV Q5MIN PRN PRN Reason: BREAKTHROUGH AGITATION Stop: 03/19/18 15:39 Sodium Bicarbonate (Bicarbonate, Sodium) 650 mg PER TUBE .PER PROTOCOL PRN PRN Reason: ENTERAL TUBE OCCLUSION Sodium Chloride (Flush - Normal Saline) 10 ml IVF Q12HR PENDING SALE TO [facility] Last Admin: 02/23/18 09:54 Dose: 10 ml Sodium Chloride (Flush - Normal Saline) 10 ml IVF PRN PRN PRN Reason: Saline Flush Sodium Chloride (Flush - Normal Saline) 10 ml IV DAILY PENDING SALE TO [facility] Last Admin: 02/23/18 09:54 Dose: 10 ml
[2018-02-23] MEDS ORDERED: Carvedilol 6.25 MG TAB PO SCH ×2 (16:00→21:00)
--- NOTE | 2018-02-23 16:00 | PRG ---
DATE OF SERVICE: 02/23/2018 SUBJECTIVE: Ms. Coelho continues to recover in the ICU from her pneumonia, but also her cerebellar infarct. Her ventriculostomy remains in place and is patent with minimal drainage. She had a repeat CT examination performed which shows decompression of her ventricles. She continues to have some ed martín within the posterior fossa which will hopefully sharonda with time. Neurologically, she has been st able over the past several days and that she opens her eyes and follows commands. My plan is to clam p her ventriculostomy today to see how she tolerates that from a neurologic perspective. There are p otentially plans to extubate her as early as tomorrow. Neurosurgery will continue to follow.
[2018-02-23] MEDS ORDERED: Acetaminophen 650 MG in Premix Bag 1 BAG IVPB PRN (16:12)
[2018-02-23] MEDS ORDERED: Albumin 5% 0 ML ONE (16:12)
[2018-02-23 16:18] VITALS: BP 101/46
[2018-02-23] MEDS ORDERED: Lidocaine 2 gm/D5W 500ML PREMIX BAG ONE (17:00)
[2018-02-23] MEDS ORDERED: Magnesium 5 GM/10 ML Abboject SYRINGE ONE (17:00)
[2018-02-23] MEDS ORDERED: EPINEPHrine 1 MG/10 ML Abboject SYRINGE ONE ×2 (17:00→19:00)
[2018-02-23] MEDS ORDERED: Sodium Bicarb 50 MEQ/50 ML Abboject 8.4% SYRINGE ONE ×2 (17:00→19:00)
[2018-02-23 17:52] VITALS: TEMP 100.3
[2018-02-23] MEDS ORDERED: Acetaminophen 1,000 MG in Premix Bag 1 BAG IVPB PRN (18:00)
[2018-02-23] MEDS ORDERED: Insulin Regular 300 UNITS/3 ML VIAL SC SCH ×2 (18:00)
[2018-02-23] MEDS ORDERED: Calcium Chloride 1 GM/10 ML Abboject SYRINGE ONE (19:00)
[2018-02-23] MEDS ORDERED: Amiodarone HCl 450 MG, Admixture Fee 1 EACH in Dextrose 5% in Water 250 ML IVPB SCH (19:15)
[2018-02-23] MEDS ORDERED: EPINEPHrine 1 MG, Admixture Fee 1 EACH in Dextrose 5% in Water 250 ML IVPB SCH (19:15)
[2018-02-23] MEDS ORDERED: Norepinephrine 8 MG/0.9% NS 250 ML ONE (19:19)
[2018-02-23 19:49] LABS: CKMB 0.4 ng/mL (0-6.6); Troponin I 0.045 ng/mL (< 0.028)
[2018-02-23 20:22] LABS: CO2 Tension 183.3 mmHg (35.0-45.0); pH, Arterial 6.89 (7.35-7.45)
[2018-02-23 20:23] LABS: Actual Bicarbonate (HCO3a) 34.3 mEq/L (22-28); Base Excess (BEa) 2.9 mEq/L (-2.0 to +3.0); O2 Tension (PaO2) 18.2 mmHg (80.0-100.0)
[2018-02-23 20:24] LABS: Calcium, Ionized 1.3 mmol/L (1.12-1.30); Hematocrit-ABG 29.2 % (36.0-47.0); Hemoglobin (Hb) 12.5 g/dL (12.0-16.0)
[2018-02-23 20:25] LABS: Puncture Site Central Line
[2018-02-23 20:26] LABS: ALV-art Gradient 456.675 (0-20)
--- NOTE | 2018-02-24 17:47 | DIS ---
DATE OF ADMISSION: 02/15/2018 DATE OF : 02/23/2018 HISTORY OF PRESENT ILLNESS/HOSPITAL COURSE: The patient is a 42-year-old female who has a history of type 2 diabetes mellitus and presented to the hospital as syncopal episodes. She was admitted to te lemetry floor, started on IV antibiotics including azithromycin for atypical lung masses and organism s on DuoNebs as needed. She had an x-ray which shows cardiomegaly and bilateral increasing pulmonary vascular markings. EKG shows normal sinus rhythm with nonspecific ST-T wave changes. BNP was 184. Lactic acid was 2.4. CT angiogram of the chest was negative for PE, but showed diffuse alveolar consolidation bilaterall y favoring edema; however, diffuse bilateral atypical pneumonia could not be excluded. She was then started on IV antibiotics and admitted to the hospital. Her metformin was held and she was placed on sliding scale and long-acting insulin for glucose control. While in the hospital, she went into res piratory failure and had had cerebellar infarction, this happened on 02/16/2018. The nurse called an d saying the patient was sleeping, but coherent and oriented. CT scan of the brain showed new infarc t in the right cerebellar region and CTA showed mass effect on the fourth ventricle. Neurosurgery wa s immediately called as well as Pulmonary Critical Care. She was mostly in the ICU intubation. Afte r review of the imaging, Neurosurgery also took the patient to the OR for a craniotomy. She remained in the ICU and continued to improve with therapy. The plan was for the patient to have ventricular drainage with more aggressive weaning, started on repeat CT head on 02/23/2018; however, on the day o f expiration, she became tachycardic and Cardiology was consulted. The patient had been on Coreg and the dose was increased from 3.125 to 6.25 mg. Later on in the day, philip talley was called around 7:03 p.m. and despite multiple rounds of CPR, multiple medications including epinephrine, amiodarone, bipin cium, magnesium, bicarbonate and at least 2 rounds of shocks, the patient did not regain consciousnes s or regained her pulse. Time of was called at 7:48 p.m. DISCHARGE MEDICATIONS: None. PHYSICAL EXAMINATION: The patient . LABORATORY DATA: None. The patient . CONSULTS: Neurosurgery, Pulmonology, Neurology and Cardiology. IMAGING: As stated in the HPI. CONDITION AT DISCHARGE: . PROCEDURES: Craniotomy and intubation.
== END 2018-02-23 19:48 | disposition expired | DRG 23 ==
LOC: ERS 18:46 → 2NO 22:36 → CCU 02-17 08:23
PROVIDERS: ADMIT Internal Medicine; ATTEND Internal Medicine
PROC: 009600Z Drainage of Cerebral Ventricle with Drainage Device, Open Approach (ICD-10-PCS; principal; 2018-02-17)
PROC: 00B70ZZ Excision of Cerebral Hemisphere, Open Approach (ICD-10-PCS; 2018-02-17)
PROC: 0B9M8ZX Drainage of Bilateral Lungs, Via Natural or Artificial Opening Endoscopic, Diagnostic (ICD-10-PCS; 2018-02-17)
PROC: 5A1955Z Respiratory Ventilation, Greater than 96 Consecutive Hours (ICD-10-PCS; 2018-02-17)
PROC: 0BH17EZ Insertion of Endotracheal Airway into Trachea, Via Natural or Artificial Opening (ICD-10-PCS; 2018-02-17)
PROC: 0DH67UZ Insertion of Feeding Device into Stomach, Via Natural or Artificial Opening (ICD-10-PCS; 2018-02-19)
PROC: 3E0G76Z Introduction of Nutritional Substance into Upper GI, Via Natural or Artificial Opening (ICD-10-PCS; 2018-02-19)
DX: I63.9 Cerebral infarction, unspecified (principal); E11.00 Type 2 diabetes mellitus with hyperosmolarity without nonketotic hyperglycemic-hyperosmolar coma (NKHHC); J69.0 Pneumonitis due to inhalation of food and vomit; G93.6 Cerebral edema; G93.5 Compression of brain; J96.00 Acute respiratory failure, unspecified whether with hypoxia or hypercapnia; G91.1 Obstructive hydrocephalus; I42.9 Cardiomyopathy, unspecified; E87.0 Hyperosmolality and hypernatremia; Z68.42 Body mass index [BMI] 45.0-49.9, adult; J45.909 Unspecified asthma, uncomplicated; E11.9 Type 2 diabetes mellitus without complications; E66.01 Morbid (severe) obesity due to excess calories; R29.724 NIHSS score 24; E78.5 Hyperlipidemia, unspecified; R79.89 Other specified abnormal findings of blood chemistry; E87.8 Other disorders of electrolyte and fluid balance, not elsewhere classified; D64.89 Other specified anemias; I50.9 Heart failure, unspecified; E11.649 Type 2 diabetes mellitus with hypoglycemia without coma; R00.0 Tachycardia, unspecified; N19 Unspecified kidney failure; Z79.4 Long term (current) use of insulin
CPT/HCPCS: 36415; 36416; 70450; 70496; 70498; 71045; 71275; 80048; 80053; 80061; 80306; 81003; 82553; 82805; 83036; 83605; 83735; 83880; 84100; 84443; 84484; 85025; 85379; 85610; 85730; 87040; 87070; 87086; 87205; 93005; 93010; 93306; 94002; 94003; 94640; 94760; 96365; A4216; C9113; G8978-GP-CM; G8979-GP-CK; J0131; J0171; J0282; J0456; J0670; J0690; J0692; J0696; J1100; J1650; J1815; J1940; J1956; J2001; J2060; J2704; J2920; J3370; J3475; J7050; J7070; J7620; P9045; Q0162